=== PATIENT | female | born 1980 | race Caucasian/White ===

== ENCOUNTER 2020-06-19 10:48 | Outpatient (REF) | payer OTHER, SELFPAY ==
[2020-06-19 12:39] LABS: Free T4 (Free Thyroxine) 1.21 ng/dL (0.71-1.85)
== END 2020-06-19 10:49 | disposition home or self-care (01) ==
LOC: HO.LAB 10:48
PROVIDERS: PCP Family Medicine; Visit Provider Internal Medicine
DX: E03.9 Hypothyroidism, unspecified (principal); E55.9 Vitamin D deficiency, unspecified
CPT/HCPCS: 36415; 82306; 84439; 84443

== ENCOUNTER → 2020-07-05 09:05 | Outpatient (BNVA) | payer OTHER, SELFPAY | PROVIDERS: PCP Family Medicine; Visit Provider Internal Medicine ==

== ENCOUNTER 2020-07-19 09:13 | Outpatient (REF) | payer OTHER, SELFPAY | END 2020-07-19 09:14 | disposition home or self-care (01) | LOC: HO.LAB 09:13 | PROVIDERS: Visit Provider Internal Medicine | DX: Z20.822 Contact with and (suspected) exposure to COVID-19 (principal) | CPT/HCPCS: 36415; C9803; U0003; U0005 ==

== ENCOUNTER 2020-08-01 11:47 | Outpatient (REF) | payer OTHER, SELFPAY ==
[2020-08-01 12:13] LABS: COVID-19 Test Negative (Negative); IDNOW Serial# 55D5AD1C
== END 2020-08-01 11:48 | disposition home or self-care (01) ==
LOC: HO.LAB 11:47
PROVIDERS: Visit Provider Internal Medicine
DX: Z20.822 Contact with and (suspected) exposure to COVID-19 (principal)
CPT/HCPCS: 36415; 87635; C9803

== ENCOUNTER 2020-08-14 01:50 | Emergency (ER) | payer OTHER, SELFPAY ==
--- NOTE | ~2020-08-14 | CT_ITS ---
EXAMINATION: CT ABDOMEN AND PELVIS WITH CONTRAST CLINICAL INFORMATION: Left lower quadrant pain. COMPARISON: None. TECHNIQUE: Contiguous axial thin section helical images of the abdomen and pelvis were performed following the administration of 100 mL of intravenous Omnipaque 300. The data set was reformatted in the coronal and sagittal planes and reviewed on an independent workstation. DLP: 668 mGy-cm. FINDINGS: The visualized lung bases are clear. The visualized portions of the heart are unremarkable. The liver is of normal size and attenuation without focal lesions nor intrahepatic biliary ductal dilation. A normal gallbladder is identified. There is no wall thickening or discernible pericholecystic fluid. The spleen, pancreas, adrenal glands are unremarkable. Both kidneys are of normal size and attenuation without hydronephrosis or nephrolithiasis. Following the administration of IV contrast, prompt symmetric nephrograms are displayed. There is no abdominal free fluid. There is neither mesenteric nor retroperitoneal lymphadenopathy. Normal unopacified loops of small and large bowel are identified. A normal appendix is identified. There is no pelvic free fluid. The urinary bladder is unremarkable. There is neither pelvic nor inguinal lymphadenopathy. Bone windows: Neither sclerotic nor lytic bone lesions are identified. CT/CT abdomen pelvis w con IMPRESSION: Acute abdominal or pelvic inflammatory or infectious processes. Automated exposure control (Care Dose) Adjustment of the mA and/or kv according to patient size (this includes techniques or standardized protocols for targeted exams where dose is matched to indication / reason for exam; i.e. extremities or head).
--- NOTE | ~2020-08-14 | US_ITS ---
EXAMINATION: ULTRASOUND PELVIC, COMPLETE CLINICAL INFORMATION: Pain. Elevated white blood cell count. COMPARISON: Same day abdominal and pelvic CT. Pelvic ultrasound from November 2019. TECHNIQUE: Transabdominal and transvaginal imaging was performed. Transvaginal imaging was performed for further evaluation of the endometrium and adnexa. FINDINGS: The uterus is of increased size and overall normal echogenicity measuring 16.4 x 6.3 x 8.5 cm. A regular homogeneous endometrium is identified measuring 1.4 cm. An IUD is in place below within the uterine segment. The proximal portion of the IUD is likely proximal to the cervix, however. There is a fundal fibroid measuring 6.7 x 5.6 x 6.6 cm, increased from prior exam. Both ovaries are of normal size and echogenicity. The right measures 3.5 x 2.3 x 1.8 cm for a volume of 7.8 mL. The left measures 3.5 x 2.5 x 1.8 cm for a volume of 8.3 mL. There is no pelvic free fluid. US/US pelvic and transvaginal IMPRESSION: IUD in place. While it is low within the uterus, the proximal aspect is proximal to the cervix. Interval increase in fundal fibroid.
[2020-08-14 02:02] VITALS: BP 115/56; PULSE 70; RESP 16; TEMP 37.1; O2SAT 99; BMI 30.1
--- NOTE | 2020-08-14 02:35 | ED.ABDPAIN ---
HPI - Abdominal Pain General Chief Complaint: Abdominal Pain Stated Complaint: pelvic pain Time Seen by Provider: 08/14/20 02:23 Source: patient Mode of arrival: ambulatory Limitations: no limitations History of Present Illness HPI narrative: Patient comes emergency room complaining of left lower quadrant pain for 3 days. Patient states that she is aware that she has been diagnosed with polycystic ovarian syndrome. However this time she is very bloated. Patient states that she is currently menstruating. Patient states that she has an IUD in place, concerned that she had her menstrual period twice last month and now she is having it again. Patient complaining also of bilateral lower quadrant abdominal cramping. Patient denies fever, no chills, no nausea or vomiting, no diarrhea, denies vaginal discharge, currently menstruating Related Data Home Medications Medication Instructions Recorded Confirmed ascorbate calcium (vitamin C) 500 500 mg PO DAILY 07/05/20 07/05/20 mg tablet omega-3 fatty acids 1,000 mg 1,000 mg PO DAILY 07/05/20 07/05/20 capsule vitamin E 200 unit capsule 400 unit PO DAILY cap 07/05/20 07/05/20 Previous Rx's Medication Instructions Recorded cholecalciferol (vitamin D3) 1,250 1,250 mcg PO QWEEK 56 Days #8 cap 07/05/20 mcg (50,000 unit) capsule cholecalciferol (vitamin D3) 50 50 mcg PO DAILY 30 Days #30 cap 07/05/20 mcg (2,000 unit) capsule levothyroxine 125 mcg capsule 125 mcg PO DAILY 30 Days #30 cap 07/05/20 acetaminophen [Tylenol 8 Hour] 650 mg PO Q12H #10 tab 08/14/20 ibuprofen 600 mg PO Q8H PRN #10 tab 08/14/20 Allergies Allergy/AdvReac Type Severity Reaction Status Date / Time penicillin V Allergy Unknown Unknown. Verified 07/05/20 10:36 Penicillins [PENICILLINS] Allergy Unknown RASH Verified 07/05/20 10:36 tramadol [TRAMADOL] Allergy Unknown STOMACH Verified 07/05/20 10:36 UPSET Tramadol Allergy Unknown Unknown. Uncoded 07/05/20 10:36 Review of Systems Review of Systems Constitutional : No Weight loss, No Fever, No Chills, No Night Sweats, No Fatigue, No Malaise ENT/Mouth : No Hearing loss, No Ear Pain, No Nasal Congestion, No Sinus Pain, No Hoarseness, No sore throat, No Rhinorrhea, No Swallowing Difficulty Eyes: No Eye Pain, No Swelling, No Redness, No Foreign Body, No Discharge, No Vision Changes Cardiovascular : No Chest Pain, No SOB, No Dyspnea on Exertion, No Orthopnea, No Edema, No Palpitations Respiratory : No Cough, No Sputum, No Wheezing, No Smoke Exposure, No Dyspnea Gastrointestinal : No Nausea, No Vomiting, No Diarrhea, No Constipation, complaining of bilateral lower quadrant cramping, dull pain in the left lower quadrant, No Hematochezia, No Melena Genitourinary : Complaining of irregular bleeding, No Dysuria, No Urinary Frequency, No Hematuria, No Urinary Incontinence, No Urgency, No Flank Pain, No Urinary Flow Changes, No Hesitancy Musculoskeletal : No joint pain, No Myalgias, No Joint Swelling Skin : No Skin Lesions, No rash Neuro : No Weakness, No Numbness, No Paresthesias, No Loss of Consciousness, No Dizziness, No Headache Psych : No Anxiety/Panic, No Depression, No SI/HI/AH/VH, No Social Issues, Heme/Lymph: No Bruising, No Bleeding,No Lymphadenopathy Endocrine : No Polyuria, No Polydipsia, No Temperature Intolerance Physical Exam Vital Signs: Vital Signs: Last Vital Signs Temp 98.7 F 08/14/20 02:02 Pulse 86 08/14/20 06:38 Resp 16 08/14/20 06:38 BP 108/56 L 08/14/20 06:38 Pulse Ox 98 08/14/20 06:38 Body Mass Index 30.1 Appearance: Alert. Oriented X3. No acute distress. Well-appearing Eyes: Pupils equal, round and reactive to light. ENT: Pharynx normal. Neck: Normal inspection. Neck supple. No lymph nodes noted. No crepitus CVS: Normal heart rate and rhythm. Pulses normal. Normal S1 and S2 Respiratory: No respiratory distress. Breath sounds normal. No Wheezing. No rales Abdomen: Soft, mild tenderness to palpation in the left lower quadrant, no rebound, no guarding. No rigidity. No distention. Skin: Skin warm and dry. Normal skin color. Normal skin turgor. Extremities: No lower extremity edema. No lower extremity edema. No Lacerations. No Rash Neuro: Oriented X 3. No motor deficit. No sensory deficit. Moving all extermities. No slurred speech. Course Course Course Narrative: Patient's white blood cell count likely reactive leukocytosis. Patient states that she feels better, pelvic transvaginal ultrasound and pelvic CT scan do not show any acute pathology. Patient states that she has an appointment next week with her OBGYN. MDM - Abdominal Pain Lab Data Result diagrams: 08/14/20 03:09 08/14/20 03:09 Labs: Lab Results 08/14/20 08/14/20 08/14/20 Range/Units 03:09 03:09 04:33 WBC 15.5 H (4.8-10.8) X10*3/uL RBC 4.19 L (4.20-5.50) X10*6/uL Hgb 12.8 (12.0-16.0) g/dl Hct 37.5 (37-47) % MCV 89.5 (80-98) fL MCH 30.5 (27.0-33.0) pg MCHC 34.1 (31.0-35.0) g/dl RDW 12.4 (11.0-16.0) % Plt Count 258 (160-400) X10*3/uL MPV 12.0 (9.4-12.3) fL Immature Gran % (Auto) 0.3 (0.0-0.4) % Neut % (Auto) 84.4 H (45-73) % Lymph % (Auto) 10.5 L (20-40) % Williamson % (Auto) 4.3 (2-11) % Eos % (Auto) 0.3 (0-4) % Baso % (Auto) 0.2 (0-2) % Lymph # (Auto) 1.6 (1.2-4.9) X10*3/uL Williamson # (Auto) 0.7 (0.1-1.2) X10*3/uL Eos # (Auto) 0.0 (0.0-0.4) X10*3/uL Baso # (Auto) 0.0 (0.0-0.2) X10*3/uL Abs Immat Gran (auto) 0.05 H (0.00-0.03) X10*3/uL Absolute Neuts (auto) 13.1 H (2.0-8.3) X10*3/uL Absolute Nucleated RBC 0.000 (0.0-0.012) X10*3/uL Nucleated RBC % (auto) 0.0 (0.0-0.2) /100WBC Sodium 141 (135-145) mmol/L Potassium 4.0 (3.3-5.1) mmol/L Chloride 103 (96-108) mmol/L Carbon Dioxide 30 H (22-29) mmol/L Anion Gap 12 (12-20) BUN 17 H (9-16) mg/dL Creatinine 0.79 (0.5-1.4) mg/dL Estim Creat Clear Calc 100.1 Estimated GFR > 60 Random Glucose 123 H (60-115) mg/dL Calcium 9.4 (8.4-10.2) mg/dL Total Bilirubin 1.1 H (0.0-1.0) mg/dL Direct Bilirubin 0.3 (0.0-0.5) mg/dL AST 15 (5-31) U/L ALT 13 (0-31) U/L Alkaline Phosphatase 60 (39-117) U/L Total Protein 7.2 (6.5-8.0) g/dL Albumin 4.5 (3.5-5.0) g/dL Lipase 18 (8-78) U/L Urine Color STRAW Urine Appearance HAZY Urine pH 6.0 (5.0-8.0) Ur Specific [place] 1.010 (1.005-1.025) Urine Protein 1+ H (NEG-TRACE) MG/DL Urine Glucose (UA) NEG (NEG) MG/DL Urine Ketones NEG (NEG) MG/DL Urine Blood 3+ H (NEG) Urine Nitrite NEG (NEG) Ur Leukocyte Esterase NEG (NEG) Urine RBC TNTC H (0) /HPF Urine WBC 1-4 (0-4) /HPF Ur Squamous Epith Cells 1+ /LPF Urine Bacteria 1+ /LPF Urine Test (NEGATIVE) 08/14/20 Range/Units 04:33 WBC (4.8-10.8) X10*3/uL RBC (4.20-5.50) X10*6/uL Hgb (12.0-16.0) g/dl Hct (37-47) % MCV (80-98) fL MCH (27.0-33.0) pg MCHC (31.0-35.0) g/dl RDW (11.0-16.0) % Plt Count (160-400) X10*3/uL MPV (9.4-12.3) fL Immature Gran % (Auto) (0.0-0.4) % Neut % (Auto) (45-73) % Lymph % (Auto) (20-40) % Williamson % (Auto) (2-11) % Eos % (Auto) (0-4) % Baso % (Auto) (0-2) % Lymph # (Auto) (1.2-4.9) X10*3/uL Williamson # (Auto) (0.1-1.2) X10*3/uL Eos # (Auto) (0.0-0.4) X10*3/uL Baso # (Auto) (0.0-0.2) X10*3/uL Abs Immat Gran (auto) (0.00-0.03) X10*3/uL Absolute Neuts (auto) (2.0-8.3) X10*3/uL Absolute Nucleated RBC (0.0-0.012) X10*3/uL Nucleated RBC % (auto) (0.0-0.2) /100WBC Sodium (135-145) mmol/L Potassium (3.3-5.1) mmol/L Chloride (96-108) mmol/L Carbon Dioxide (22-29) mmol/L Anion Gap (12-20) BUN (9-16) mg/dL Creatinine (0.5-1.4) mg/dL Estim Creat Clear Calc Estimated GFR Random Glucose (60-115) mg/dL Calcium (8.4-10.2) mg/dL Total Bilirubin (0.0-1.0) mg/dL Direct Bilirubin (0.0-0.5) mg/dL AST (5-31) U/L ALT (0-31) U/L Alkaline Phosphatase (39-117) U/L Total Protein (6.5-8.0) g/dL Albumin (3.5-5.0) g/dL Lipase (8-78) U/L Urine Color Urine Appearance Urine pH (5.0-8.0) Ur Specific [place] (1.005-1.025) Urine Protein (NEG-TRACE) MG/DL Urine Glucose (UA) (NEG) MG/DL Urine Ketones (NEG) MG/DL Urine Blood (NEG) Urine Nitrite (NEG) Ur Leukocyte Esterase (NEG) Urine RBC (0) /HPF Urine WBC (0-4) /HPF Ur Squamous Epith Cells /LPF Urine Bacteria /LPF Urine Test NEGATIVE (NEGATIVE) Imaging Data CT scan - abdomen: Radiologist's impression: TECHNIQUE: Contiguous axial thin section helical images of the abdomen and pelvis were performed following the administration of 100 mL of intravenous Omnipaque 300. The data set was reformatted in the coronal and sagittal planes and reviewed on an independent workstation. DLP: 668 mGy-cm. FINDINGS: The visualized lung bases are clear. The visualized portions of the heart are unremarkable. The liver is of normal size and attenuation without focal lesions nor intrahepatic biliary ductal dilation. A normal gallbladder is identified. There is no wall thickening or discernible pericholecystic fluid. The spleen, pancreas, adrenal glands are unremarkable. Both kidneys are of normal size and attenuation without hydronephrosis or nephrolithiasis. Following the administration of IV contrast, prompt symmetric nephrograms are displayed. There is no abdominal free fluid. There is neither mesenteric nor retroperitoneal lymphadenopathy. Normal unopacified loops of small and large bowel are identified. A normal appendix is identified. There is no pelvic free fluid. The urinary bladder is unremarkable. There is neither pelvic nor inguinal lymphadenopathy. Bone windows: Neither sclerotic nor lytic bone lesions are identified. CT/CT abdomen pelvis w con IMPRESSION: Acute abdominal or pelvic inflammatory or infectious processes. Transvaginal ultrasound: Radiologist's impression: The uterus is of increased size and overall normal echogenicity measuring 16.4 x 6.3 x 8.5 cm. A regular homogeneous endometrium is identified measuring 1.4 cm. An IUD is in place below within the uterine segment. The proximal portion of the IUD is likely proximal to the cervix, however. There is a fundal fibroid measuring 6.7 x 5.6 x 6.6 cm, increased from prior exam. Both ovaries are of normal size and echogenicity. The right measures 3.5 x 2.3 x 1.8 cm for a volume of 7.8 mL. The left measures 3.5 x 2.5 x 1.8 cm for a volume of 8.3 mL. There is no pelvic free fluid. US/US pelvic and transvaginal IMPRESSION: IUD in place. While it is low within the uterus, the proximal aspect is proximal to the cervix. Interval increase in fundal fibroid. Discharge Plan Discharge Clinical Impression: Abdominal pain Qualifiers: Abdominal location: left lower quadrant Qualified Code(s): R10.32 - Left lower quadrant pain Patient Disposition: Home, Self-Care Instructions: Abdominal Pain (ED) Additional Instructions: Please follow-up with your primary care physician tomorrow. If you have any worsening or new symptoms, please return to the emergency room or call 911 Prescriptions: New ibuprofen 600 mg tablet 600 mg PO Q8H PRN (Reason: pain) Qty: 10 RF: 0 acetaminophen [Tylenol 8 Hour] 650 mg tablet extended release 650 mg PO Q12H Qty: 10 RF: 0 No Action vitamin E 200 unit capsule 400 unit PO DAILY RF: 0 ascorbate calcium (vitamin C) 500 mg tablet 500 mg PO DAILY RF: 0 omega-3 fatty acids [Fish Oil Concentrate] 1,000 mg capsule 1,000 mg PO DAILY RF: 0 cholecalciferol (vitamin D3) 50 mcg (2,000 unit) capsule 50 mcg PO DAILY 30 Days Qty: 30 RF: 11 cholecalciferol (vitamin D3) 1,250 mcg (50,000 unit) capsule 1,250 mcg PO QWEEK 56 Days Qty: 8 RF: 0 levothyroxine 125 mcg capsule 125 mcg PO DAILY 30 Days Qty: 30 RF: 1 PMFSH Past Medical History Medical History Hypothyroidism Obesity PCOS (polycystic ovarian syndrome) Vitamin D deficiency Surgical History Hx of dilation and curettage Hx of tooth extraction Family History Family History Mother Hypertension Depression Father No problems noted. Paternal Grandfather Diabetes Social History Social History Smoking Status: Former smoker Advance Directives: No Advance Directives Information Provided: No
[2020-08-14 03:13] LABS: Basophils Percent Auto 0.2 % (0-2); Eosinophils Percent Auto 0.3 % (0-4); Hematocrit 37.5 % (37-47); Hemoglobin 12.8 g/dl (12.0-16.0); Imm Gran Abs Auto 0.05 X10*3/uL (0.00-0.03); Imm Gran Pct Auto 0.3 % (0.0-0.4); Lymphocytes Absolute Auto 1.6 X10*3/uL (1.2-4.9); Lymphocytes Percent Auto 10.5 % (20-40); MANUAL DIFF FLAG NO; Mean Corpuscular HGB Conc 34.1 g/dl (31.0-35.0); Mean Corpuscular Hemoglobin 30.5 pg (27.0-33.0); Mean Corpuscular Volume 89.5 fL (80-98); Monocytes Absolute Auto 0.7 X10*3/uL (0.1-1.2); Monocytes Percent Auto 4.3 % (2-11); Neutrophils Absolute Auto 13.1 X10*3/uL (2.0-8.3); Neutrophils Percent Auto 84.4 % (45-73); Platelet Count 258 X10*3/uL (160-400); Red Blood Count 4.19 X10*6/uL (4.20-5.50); Red Cell Distribution Width 12.4 % (11.0-16.0); White Blood Count 15.5 X10*3/uL (4.8-10.8)
[2020-08-14] MEDS: ondansetron HCL 4 MG/2 ML VIAL IVPUSH (03:13)
[2020-08-14] MEDS: Morphine Sulfate 4 MG/ML CARTRIDGE IVPUSH (03:13)
[2020-08-14 03:18] VITALS: BP 98/63; PULSE 76; RESP 16; O2SAT 100
[2020-08-14 03:51] LABS: Alanine Aminotransferase 13 U/L (0-31); Albumin Level 4.5 g/dL (3.5-5.0); Alkaline Phosphatase 60 U/L (39-117); Anion Gap 12 (12-20); Aspartate Amino Transferase 15 U/L (5-31); Bilirubin Direct 0.3 mg/dL (0.0-0.5); Bilirubin Total 1.1 mg/dL (0.0-1.0); Blood Urea Nitrogen 17 mg/dL (9-16); Calcium 9.4 mg/dL (8.4-10.2); Carbon Dioxide 30 mmol/L (22-29); Chloride 103 mmol/L (96-108); Creatinine Clr Calc Pharmacy 100.1; Estimated Glomerular Filt Rate > 60; Glucose Random 123 mg/dL (60-115); Lipase 18 U/L (8-78); Sodium 141 mmol/L (135-145); Total Protein 7.2 g/dL (6.5-8.0)
[2020-08-14] MEDS: iohexoL 350 MG/ML 100 ML INFUS..BTL 85 ML IV (04:11)
--- NOTE | 2020-08-14 04:26 | PC.NURSE ---
patient is ambulatory to the bathroom with a steady gait to obtain a urine sample. Patient reports that the pain is better, 5/10
[2020-08-14 04:33] VITALS: BP 120/66; PULSE 80; RESP 16; O2SAT 100
[2020-08-14 04:51] LABS: Glucose Urine UA NEG (NEG); Leukocyte Esterase Urine NEG (NEG); Nitrite Urine NEG (NEG); Urine Blood 3+ (NEG); Urine Ketones NEG (NEG); Urine Protein 1+ MG/DL (NEG-TRACE)
[2020-08-14 04:53] LABS: Appearance Urine HAZY; Color Urine STRAW
[2020-08-14 04:54] LABS: Bacteria Urine 1+ /LPF; RBC Urine TNTC /HPF (0); Squamous Epithelial Cell Urine 1+ /LPF; UPreg QC Valid YES; Urine Pregnancy NEGATIVE (NEGATIVE)
[2020-08-14 06:38] VITALS: BP 108/56; PULSE 86; RESP 16; O2SAT 98
[2020-08-14 07:12] VITALS: BP 107/71; PULSE 77; RESP 16; TEMP 37; O2SAT 97
== END 2020-08-14 07:35 | disposition home or self-care (01) ==
PROVIDERS: Emergency Provider Emergency Medicine; PCP Family Medicine
DX: R10.32 Left lower quadrant pain (principal)
CPT/HCPCS: 36415; 74177; 76830; 76856; 80048; 80076; 81001; 81025; 83690; 85025; 96374; 96375; 99284; J2270; J2405; Q9967

== ENCOUNTER 2020-08-21 13:12 | Outpatient (REF) | payer OTHER, SELFPAY ==
[2020-08-22 01:21] LABS: CT PCR NOT DETECTED (Not Detect.); NG PCR NOT DETECTED (Not Detect.)
[2020-08-22 08:51] LABS: BV Int Neg Control Negative (Negative); BV Int Pos Control Positive (Positive)
== END 2020-08-21 13:13 | disposition home or self-care (01) ==
LOC: HO.LAB 13:12
PROVIDERS: PCP Family Medicine; Visit Provider Advanced Practice Midwife
DX: Z11.3 Encounter for screening for infections with a predominantly sexual mode of transmission (principal); R10.2 Pelvic and perineal pain; N92.1 Excessive and frequent menstruation with irregular cycle
CPT/HCPCS: 81025; 87480; 87491; 87510; 87591; 87660; 99212

== ENCOUNTER 2020-08-31 13:15 | Emergency (ER) | payer OTHER, SELFPAY ==
--- NOTE | ~2020-08-31 | US_ITS ---
EXAMINATION: US TRANSVAGINAL US PELVIS COMPLETE CLINICAL INFORMATION: 40-year-old female with vaginal bleeding and left-sided pelvic pain. Evaluate for cyst. COMPARISON: CT imaging of the abdomen and pelvis from 08/14/2020. Pelvic ultrasound from 09/09/2019 and 12/09/2019. TECHNIQUE: Sonographic imaging of the pelvis was performed using a transabdominal transducer. Also, transvaginal imaging of the pelvis was performed. FINDINGS: US PELVIS, COMPLETE Transabdominal imaging of the pelvis shows normal appearance of the urinary bladder. Uterus is anteverted, anteflexed. There is heterogeneous echotexture in the anterior fundal region at site of known intramural leiomyoma. The endometrium measures up to 1.4 cm AP. No endometrial fluid. The right ovary is not visualized. The left ovary has an anechoic, simple cyst measuring up to 3.4 cm. US PELVIS, TRANSVAGINAL The endometrium, which has normal echotexture, measures up to 1.4 cm AP. The contraceptive device is well centered within the endometrium. The tip of the intrauterine contraceptive device projects projects 2.3 cm below the upper margin of the fundal endometrium, and it is not significantly changed in position compared to 08/14/2020. It does not protrude into the cervix. The known leiomyoma in the anterior uterine fundus is heterogeneous. It is difficult to precisely measure. The leiomyoma appears to measure up to at least 6 cm in maximum dimension, unchanged compared to 08/14/2020, and increased in size compared to 09/09/2019.. The right ovary is not visualized. The left ovary is 4.4 x 3.1 x 3.8 cm. It has a 3.4 x 2.7 x 2.8 cm simple cyst. Simple ovarian cysts in premenopausal patients are almost certainly benign. No follow-up imaging is recommended for a simple cyst. Color Doppler images show presence of arterial flow within the ovary. No pelvic free fluid. US/US pelvic complete IMPRESSION: * No acute abnormalities in the pelvis compared to 08/14/2020 * Simple cyst of the left ovary measures up to 3.4 cm. No evidence of ovarian torsion or pelvic free fluid. * The leiomyoma of the anterior uterine fundus is stable compared to 08/14/2020, but increased in size compared to 09/09/2019.
[2020-08-31 13:17] VITALS: BP 122/69; PULSE 89; RESP 18; TEMP 36.7; O2SAT 100; BMI 29.9
[2020-08-31 14:46] LABS: MANUAL DIFF FLAG NO
[2020-08-31 14:49] LABS: Basophils Percent Auto 0.3 % (0-2); Eosinophils Absolute Auto 0.1 X10*3/uL (0.0-0.4); Eosinophils Percent Auto 1.2 % (0-4); Hematocrit 37.4 % (37-47); Hemoglobin 12.8 g/dl (12.0-16.0); Imm Gran Abs Auto 0.03 X10*3/uL (0.00-0.03); Imm Gran Pct Auto 0.3 % (0.0-0.4); Lymphocytes Absolute Auto 2.4 X10*3/uL (1.2-4.9); Lymphocytes Percent Auto 27.4 % (20-40); Mean Corpuscular HGB Conc 34.2 g/dl (31.0-35.0); Mean Corpuscular Hemoglobin 30.5 pg (27.0-33.0); Mean Corpuscular Volume 89.3 fL (80-98); Mean Platelet Volume 11.7 fL (9.4-12.3); Monocytes Absolute Auto 0.6 X10*3/uL (0.1-1.2); Monocytes Percent Auto 6.5 % (2-11); Neutrophils Absolute Auto 5.7 X10*3/uL (2.0-8.3); Neutrophils Percent Auto 64.3 % (45-73); Platelet Count 275 X10*3/uL (160-400); Red Blood Count 4.19 X10*6/uL (4.20-5.50); Red Cell Distribution Width 12.5 % (11.0-16.0); White Blood Count 8.9 X10*3/uL (4.8-10.8)
[2020-08-31 15:14] LABS: Anion Gap 12 (12-20); Blood Urea Nitrogen 14 mg/dL (9-16); Calcium 8.9 mg/dL (8.4-10.2); Carbon Dioxide 26 mmol/L (22-29); Chloride 105 mmol/L (96-108); Creatinine Clr Calc Pharmacy 108.1; Estimated Glomerular Filt Rate > 60; Glucose Random 87 mg/dL (60-115); Potassium 4.6 mmol/L (3.3-5.1); Sodium 138 mmol/L (135-145)
--- NOTE | 2020-08-31 17:16 | ED_ITS ---
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 Of note the patient has had pelvic pain intermittently for the last 2-3 months. She has an IUD which has been in place since 2018. She has irregular bleeding since the placement of this. She was seen in our emergency department August 14 for pain and bleeding. She had an ultrasound which showed the IUD in place, in addition a fibroid. 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 She followed up with [employer]ING MACHINE OPERATOR August 21 and this was thought to be breakthrough bleeding associated with IUD. She had an STD panel which was all negative. Patient tells me she has had continued bleeding although does not feel like it is worse. She is worried that has continued this long. She did call [facility] today and was referred to the emergency department for evaluation due to her pain. The patient tells me that she has intermittent left-sided pelvic pain which comes and goes which does improve with Motrin at home. She denies any vaginal discharge, lesions, rashes. No nausea, vomiting, diarrhea, constipation or urinary symptoms. She is sexually active with 1 male partner and is not concerned about STD exposure. She tells me she has vag bleeding and uses 2-4 pads per day. Related Data Home Medications Medication Instructions Recorded Confirmed ascorbate calcium (vitamin C) 500 500 mg PO DAILY 07/05/20 07/05/20 mg tablet omega-3 fatty acids 1,000 mg 1,000 mg PO DAILY 07/05/20 07/05/20 capsule vitamin E 200 unit capsule 400 unit PO DAILY cap 07/05/20 07/05/20 Previous Rx's Medication Instructions Recorded cholecalciferol (vitamin D3) 1,250 1,250 mcg PO QWEEK 56 Days #8 cap 07/05/20 mcg (50,000 unit) capsule cholecalciferol (vitamin D3) 50 50 mcg PO DAILY 30 Days #30 cap 07/05/20 mcg (2,000 unit) capsule levothyroxine 125 mcg capsule 125 mcg PO DAILY 30 Days #30 cap 07/05/20 acetaminophen [Tylenol 8 Hour] 650 mg PO Q12H #10 tab 08/14/20 ibuprofen 600 mg PO Q8H PRN #10 tab 08/14/20 ibuprofen 600 mg PO Q8H PRN #20 tab 08/31/20 Allergies Allergy/AdvReac Type Severity Reaction Status Date / Time Penicillins [PENICILLINS] Allergy Unknown RASH Verified 08/21/20 14:19 tramadol [TRAMADOL] Allergy Unknown STOMACH Verified 08/21/20 14:19 UPSET Review of Systems Review of Systems: Yes all other systems are reviewed and are negative Constitutional: Constitutional: Reports no additional constitutional complaints, Denies body ache(s), Denies chills, Denies fever(s), Denies headache(s) and Denies weakness Eyes: Eyes: Reports no additional eye complaints and Denies change in vision ENT: Reports system reviewed and no additional complaints, except as documented, Denies dizziness, Denies headache(s), Denies nasal congestion, Denies nasal discharge and Denies neck pain Cardiovascular: Cardiovascular: Reports no additional cardiovascular complaints, Denies chest pain, Denies leg edema and Denies dyspnea Respiratory: Respiratory: Reports no additional respiratory complaints, Denies cough and Denies dyspnea Gastrointestinal: Gastrointestinal: Reports no additional gastrointestinal complaints, Denies abdominal pain, Denies diarrhea, Denies nausea and Denies vomiting Genitourinary: Genitourinary: Reports no additional female genitourinary complaints, Reports abnormal vaginal bleeding, Reports pelvic pain and Denies urinary incontinence Musculoskeletal: Musculoskeletal: Reports no additional musculoskeletal complaints, Denies back pain, Denies arthralgias, Denies joint swelling, Denies neck pain, Denies numbness and Denies tingling Integumentary/Breasts: Skin/Breast: Reports system reviewed and no additional complaints, except as docu and Denies rash Neurologic: Reports system reviewed and no additional complaints, except as documented, Denies Abnormal speech present, Denies dizziness, Denies headache(s), Denies numbness, Denies tingling and Denies weakness PMFSH Past Medical History Attestation statement: The following information was validated with the patient. Source: old records reviewed and nursing notes reviewed Medical History Hypothyroidism Obesity PCOS (polycystic ovarian syndrome) Uterine fibroid Vitamin D deficiency Surgical History Hx of dilation and curettage Hx of tooth extraction Family History Family History Mother Hypertension Depression Father No problems noted. Paternal Grandfather Diabetes Social History Social History Alcohol intake: never Smoking Status: Never smoker Use of substances other than those prescribed or required for medical reasons: No Advance Directives: No Advance Directives Information Provided: Yes Patient : No Physical Exam Vital Signs: Vital Signs: Last Vital Signs Temp 98.0 F 08/31/20 13:17 Pulse 78 08/31/20 19:53 Resp 16 08/31/20 19:53 BP 127/88 08/31/20 19:53 Pulse Ox 98 08/31/20 19:53 Body Mass Index 29.9 Const: General: cooperative, healthy appearing, comfortable and no acute distress Orientation/consciousness: patient oriented x3 Limitations: no limitations HENMT: Head: Yes normal to inspection Ears: hearing grossly normal bilaterally General nose exam: Normal external nose present Face and sinus: Yes normal facial exam Mouth: Normal oral and palatal mucosa present Throat: Yes posterior oropharynx normal Eyes: General: appearance normal, both eyes and all related structures Pupils: Equal, round and reactive pupils present Neck: Neck: Yes normal visual inspection Chest: Chest palpation & inspection: normal inspection of the chest Resp: Effort & Inspection: normal respiratory effort Auscultation: clear to auscultation bilaterally Cardio: Rate: regular rate Rhythm: regular rhythm Peripheral pulses: Peripheral pulses 2+ throughout GI: Inspection: Yes normal to inspection Palpation (GI): Soft to palpation and nontender Auscultation: normal bowel sounds : External Female Exam: normal external appearance Speculum Exam - Vagina: vaginal bleeding (small BRB, no clots ) Speculum Exam - Cervix: normal appearance of the cervix Bimanual exam- vagina & uterus: normal bimanual exam Bimanual Exam- Adnexa, other: normal adnexae OB/external & speculum: vaginal bleeding (small BRB, no clots ) Back/Spine/Pelvis: Thoracic/Lumbar Spine: thoracic and lumbar spine normal to inspection Skin: General skin exam: no rashes or lesions noted Neuro: General: patient oriented x3, no focal motor deficits and normal sensation to monofilament Cranial nerves: Yes Equal, round and reactive pupils present Cognition (Neuro): normal cognition Speech: No Abnormal speech present Gait exam (Neuro): Normal gait present Motor exam (neuro): 5/5 motor strength present throughout Extrem: General: Yes normal to inspection Course Course Course Narrative: 40-year-old female here with chronic left-sided pelvic pain and vaginal bleeding for the last 3 months. Seen in ER and at [facility] and has had multiple ultrasounds and evaluations which have been unremarkable. Patient is here due to persistent symptoms which she does not describe as worsening. Will check labs, UA, pelvic ultrasound, pelvic exam. Offered STI testing but declined. 2044-hemoglobin stable. UA and urine negative. Pelvic exam showed a small amount of bleeding but no clots. Patient changed her pad once in the 6 hours that she was here. Pelvic ultrasound shows a known The leiomyoma of the anterior uterine fundus is stable compared to 08/14/2020, but increased in size compared to 09/09/2019. Simple cyst of the left ovary measures up to 3.4 cm. No evidence of ovarian torsion or pelvic free fluid. Discussed with patient. Her pain is much improved after receiving IM Toradol. Recommend she follow up outpatient with Gynecology. Reviewed worrisome signs and symptoms of when to return to the emergency department. Comfortable discharge home. Medical Decision Making Lab Data Result diagrams: 08/31/20 14:37 08/31/20 14:37 Labs: Lab Results 08/31/20 08/31/20 08/31/20 Range/Units 14:37 14:37 17:51 WBC 8.9 (4.8-10.8) X10*3/uL RBC 4.19 L (4.20-5.50) X10*6/uL Hgb 12.8 (12.0-16.0) g/dl Hct 37.4 (37-47) % MCV 89.3 (80-98) fL MCH 30.5 (27.0-33.0) pg MCHC 34.2 (31.0-35.0) g/dl RDW 12.5 (11.0-16.0) % Plt Count 275 (160-400) X10*3/uL MPV 11.7 (9.4-12.3) fL Immature Gran % (Auto) 0.3 (0.0-0.4) % Neut % (Auto) 64.3 (45-73) % Lymph % (Auto) 27.4 (20-40) % Cross % (Auto) 6.5 (2-11) % Eos % (Auto) 1.2 (0-4) % Baso % (Auto) 0.3 (0-2) % Lymph # (Auto) 2.4 (1.2-4.9) X10*3/uL Cross # (Auto) 0.6 (0.1-1.2) X10*3/uL Eos # (Auto) 0.1 (0.0-0.4) X10*3/uL Baso # (Auto) 0.0 (0.0-0.2) X10*3/uL Abs Immat Gran (auto) 0.03 (0.00-0.03) X10*3/uL Absolute Neuts (auto) 5.7 (2.0-8.3) X10*3/uL Absolute Nucleated RBC 0.000 (0.0-0.012) X10*3/uL Nucleated RBC % (auto) 0.0 (0.0-0.2) /100WBC Sodium 138 (135-145) mmol/L Potassium 4.6 (3.3-5.1) mmol/L Chloride 105 (96-108) mmol/L Carbon Dioxide 26 (22-29) mmol/L Anion Gap 12 (12-20) BUN 14 (9-16) mg/dL Creatinine 0.73 (0.5-1.4) mg/dL Estim Creat Clear Calc 108.1 Estimated GFR > 60 Random Glucose 87 (60-115) mg/dL Calcium 8.9 (8.4-10.2) mg/dL Urine Color YELLOW Urine Appearance CLEAR Urine pH 6.0 (5.0-8.0) Ur Specific Welling 1.010 (1.005-1.025) Urine Protein NEG (NEG-TRACE) MG/DL Urine Glucose (UA) NEG (NEG) MG/DL Urine Ketones 15 (NEG) MG/DL Urine Blood 3+ H (NEG) Urine Nitrite NEG (NEG) Ur Leukocyte Esterase NEG (NEG) Urine RBC TNTC H (0) /HPF Urine WBC 0-2 (0-4) /HPF Ur Squamous Epith Cells 1+ /LPF Urine Bacteria NONE /LPF Urine Test (NEGATIVE) 08/31/20 Range/Units 17:51 WBC (4.8-10.8) X10*3/uL RBC (4.20-5.50) X10*6/uL Hgb (12.0-16.0) g/dl Hct (37-47) % MCV (80-98) fL MCH (27.0-33.0) pg MCHC (31.0-35.0) g/dl RDW (11.0-16.0) % Plt Count (160-400) X10*3/uL MPV (9.4-12.3) fL Immature Gran % (Auto) (0.0-0.4) % Neut % (Auto) (45-73) % Lymph % (Auto) (20-40) % Cross % (Auto) (2-11) % Eos % (Auto) (0-4) % Baso % (Auto) (0-2) % Lymph # (Auto) (1.2-4.9) X10*3/uL Cross # (Auto) (0.1-1.2) X10*3/uL Eos # (Auto) (0.0-0.4) X10*3/uL Baso # (Auto) (0.0-0.2) X10*3/uL Abs Immat Gran (auto) (0.00-0.03) X10*3/uL Absolute Neuts (auto) (2.0-8.3) X10*3/uL Absolute Nucleated RBC (0.0-0.012) X10*3/uL Nucleated RBC % (auto) (0.0-0.2) /100WBC Sodium (135-145) mmol/L Potassium (3.3-5.1) mmol/L Chloride (96-108) mmol/L Carbon Dioxide (22-29) mmol/L Anion Gap (12-20) BUN (9-16) mg/dL Creatinine (0.5-1.4) mg/dL Estim Creat Clear Calc Estimated GFR Random Glucose (60-115) mg/dL Calcium (8.4-10.2) mg/dL Urine Color Urine Appearance Urine pH (5.0-8.0) Ur Specific Welling (1.005-1.025) Urine Protein (NEG-TRACE) MG/DL Urine Glucose (UA) (NEG) MG/DL Urine Ketones (NEG) MG/DL Urine Blood (NEG) Urine Nitrite (NEG) Ur Leukocyte Esterase (NEG) Urine RBC (0) /HPF Urine WBC (0-4) /HPF Ur Squamous Epith Cells /LPF Urine Bacteria /LPF Urine Test NEGATIVE (NEGATIVE) Imaging Data pelvic US: Attestation: I personally reviewed and interpreted this imaging study as follows: Radiologist's impression: * No acute abnormalities in the pelvis compared to 08/14/2020 * Simple cyst of the left ovary measures up to 3.4 cm. No evidence of ovarian torsion or pelvic free fluid. * The leiomyoma of the anterior uterine fundus is stable compared to 08/14/2020, but increased in size compared to 09/09/2019. Discharge Plan Discharge Clinical Impression: Vaginal bleeding Ovarian cyst Qualifiers: Laterality: left Qualified Code(s): N83.202 - Unspecified ovarian cyst, left side Patient Disposition: Home, Self-Care Instructions: Ovarian Cyst (ED) Additional Instructions: Call Gynecology tomorrow for follow-up appointment Return for using more than 1 pad in 1 hour Prescriptions: New ibuprofen 600 mg tablet 600 mg PO Q8H PRN (Reason: pain) Qty: 20 RF: 0 No Action ibuprofen 600 mg tablet 600 mg PO Q8H PRN (Reason: pain) Qty: 10 RF: 0 acetaminophen [Tylenol 8 Hour] 650 mg tablet extended release 650 mg PO Q12H Qty: 10 RF: 0 vitamin E 200 unit capsule 400 unit PO DAILY RF: 0 ascorbate calcium (vitamin C) 500 mg tablet 500 mg PO DAILY RF: 0 omega-3 fatty acids [Fish Oil Concentrate] 1,000 mg capsule 1,000 mg PO DAILY RF: 0 cholecalciferol (vitamin D3) 50 mcg (2,000 unit) capsule 50 mcg PO DAILY 30 Days Qty: 30 RF: 11 cholecalciferol (vitamin D3) 1,250 mcg (50,000 unit) capsule 1,250 mcg PO QWEEK 56 Days Qty: 8 RF: 0 levothyroxine 125 mcg capsule 125 mcg PO DAILY 30 Days Qty: 30 RF: 1 Referrals: Robert Dawn MD [Physician] - 2 days Interventions: ED Discharge Assessment Last Done: 08/31/20 20:43 Discharge Date/Time: 08/31/20 20:43 Print Language: Afghan
[2020-08-31 18:05] LABS: Glucose Urine UA NEG (NEG); Leukocyte Esterase Urine NEG (NEG); Nitrite Urine NEG (NEG); Urine Blood 3+ (NEG); Urine Ketones 15 MG/DL (NEG); Urine Protein NEG (NEG-TRACE)
[2020-08-31 18:09] LABS: Appearance Urine CLEAR; Color Urine YELLOW
[2020-08-31 18:16] VITALS: BP 112/79; PULSE 67; RESP 15; O2SAT 97
[2020-08-31 18:25] LABS: RBC Urine TNTC /HPF (0); Squamous Epithelial Cell Urine 1+ /LPF; WBC Urine 0-2 /HPF (0-4)
[2020-08-31 18:26] LABS: UPreg QC Valid YES; Urine Pregnancy NEGATIVE (NEGATIVE)
[2020-08-31] MEDS: Ketorolac Tromethamine 60 MG/2 ML VIAL IM (18:52)
[2020-08-31 19:53] VITALS: BP 127/88; PULSE 78; RESP 16; O2SAT 98
== END 2020-08-31 20:43 | disposition home or self-care (01) ==
PROVIDERS: Nurse Practitioner Family; Emergency Provider Internal Medicine
DX: N83.202 Unspecified ovarian cyst, left side (principal); N93.9 Abnormal uterine and vaginal bleeding, unspecified; Z79.899 Other long term (current) drug therapy
CPT/HCPCS: 36415; 76830; 76856; 80048; 81001; 81025; 85025; 96372; 99285; J1885

== ENCOUNTER → 2020-09-05 10:40 | Outpatient (BNVA) | payer OTHER, SELFPAY | PROVIDERS: Visit Provider Advanced Practice Midwife | DX: Z30.432 Encounter for removal of intrauterine contraceptive device (principal); N92.1 Excessive and frequent menstruation with irregular cycle; R10.2 Pelvic and perineal pain; Z97.5 Presence of (intrauterine) contraceptive device | CPT/HCPCS: 58301; 81025 ==

== ENCOUNTER → 2020-10-09 09:29 | Outpatient (BNVA) | payer OTHER, SELFPAY | PROVIDERS: PCP Family Medicine; Visit Provider Internal Medicine ==

== ENCOUNTER 2020-10-13 06:23 | Outpatient (REF) | payer MEDICAID, SELFPAY ==
[2020-10-13 08:04] LABS: Estimated Average Glucose 94 mg/dL; Hemoglobin A1c % 4.9 %
[2020-10-13 08:16] LABS: Alanine Aminotransferase 12 U/L (0-31); Albumin Level 4.3 g/dL (3.5-5.0); Alkaline Phosphatase 66 U/L (39-117); Anion Gap 13 (12-20); Aspartate Amino Transferase 15 U/L (5-31); Bilirubin Total 0.5 mg/dL (0.0-1.0); Blood Urea Nitrogen 19 mg/dL (9-16); Carbon Dioxide 25 mmol/L (22-29); Chloride 104 mmol/L (96-108); Cholesterol 203 mg/dL; Estimated Glomerular Filt Rate > 60; Glucose Random 94 mg/dL (60-115); HDL Cholesterol 50 mg/dL; LDL Cholesterol Calculated 141 mg/dl; Potassium 4.3 mmol/L (3.3-5.1); Sodium 138 mmol/L (135-145); Total Protein 6.8 g/dL (6.5-8.0); Triglycerides 60 mg/dL
[2020-10-13 08:27] LABS: Vitamin D 25-OH Total 34.9 ng/mL (>30)
[2020-10-14 08:52] LABS: LDL Cholesterol Direct 137 mg/dL (<100)
== END 2020-10-13 06:24 | disposition home or self-care (01) ==
LOC: HO.LAB 06:23
PROVIDERS: PCP Family Medicine; Visit Provider Internal Medicine
DX: E66.9 Obesity, unspecified (principal); E55.9 Vitamin D deficiency, unspecified
CPT/HCPCS: 36415; 80053; 80061; 82306; 83036; 83721

== ENCOUNTER 2020-12-13 15:44 | Outpatient (REF) | payer MEDICAID, SELFPAY ==
--- NOTE | ~2020-12-13 | MM_ITS ---
EXAMINATION: MM SCREENING DIGITAL BREAST TOMOSYNTHESIS, BILATERAL CLINICAL INFORMATION: Screening. Asymptomatic. Age 40. No prior breast imaging. No known family history breast cancer. The lifetime risk of breast cancer based on the Tyrer-Cuzick Model is 14%. COMPARISON: None (current study represents initial baseline exam). TECHNIQUE: Digital breast tomosynthesis is performed in both the craniocaudal and mediolateral oblique views along with computer-aided detection (CAD). Synthesized 2D images are generated from the tomosynthesis. FINDINGS: There are scattered areas of fibroglandular density (ACR BI-RADS breast composition Category b). Breast tissue composition borders on heterogeneously dense. There are no significant masses, abnormal calcifications, or other abnormalities. The axilla and skin contours are unremarkable. MM/MM tomosynthesis screening BI IMPRESSION: No mammographic evidence of malignancy. ASSESSMENT: BI-RADS 1: Negative RECOMMENDATION: Routine annual mammography screening. This patient's information was entered into a reminder system with a target due date for their next mammogram.
== END 2020-12-13 15:45 | disposition home or self-care (01) ==
LOC: HO.MAMMO 15:44
PROVIDERS: Visit Provider Advanced Practice Midwife
DX: Z12.31 Encounter for screening mammogram for malignant neoplasm of breast (principal)
CPT/HCPCS: 77063; 77067

== ENCOUNTER → 2021-01-08 10:45 | Outpatient (BNVA) | payer MEDICAID, SELFPAY | PROVIDERS: PCP Family Medicine; Visit Provider Internal Medicine ==

== ENCOUNTER 2021-05-16 11:56 | Outpatient (REF) | payer MEDICAID, SELFPAY ==
[2021-05-16 12:18] LABS: COVID-19 Test Positive (Negative)
== END 2021-05-16 11:57 | disposition home or self-care (01) ==
LOC: HO.LAB 11:56
PROVIDERS: Visit Provider Internal Medicine
DX: Z20.822 Contact with and (suspected) exposure to COVID-19 (principal)
CPT/HCPCS: 87635; C9803

== ENCOUNTER 2021-06-01 16:20 | Outpatient (REF) | payer MEDICAID, SELFPAY ==
--- NOTE | ~2021-06-01 | XR_ITS ---
EXAMINATION: XR KNEE, RIGHT CLINICAL INFORMATION: Right knee pain COMPARISON: None TECHNIQUE: Four views of the right knee. FINDINGS: No fracture or dislocation or destructive process. No suprapatellar effusion. Hoffa's fat pad appears normal. There is normal bony mineralization. No focal joint narrowing or erosive change or chondrocalcinosis. Axial view patella shows no lateralization or tilting. XR/XR knee RT 4V IMPRESSION: Normal right knee.
== END 2021-06-01 16:21 | disposition home or self-care (01) ==
LOC: HO.XRAY 16:20
PROVIDERS: Absent Provider Family Medicine; PCP Family Medicine; Visit Provider Nurse Practitioner Primary Care
DX: M25.561 Pain in right knee (principal)
CPT/HCPCS: 73564

== ENCOUNTER 2021-07-17 14:00 | Outpatient (REF) | payer MEDICAID, SELFPAY ==
--- NOTE | ~2021-07-17 | US_ITS ---
EXAMINATION: ULTRASOUND EXTREMITY NONVASCULAR CLINICAL INFORMATION: Right posterior knee pain COMPARISON: X-ray of the right knee May 2021 TECHNIQUE: Grayscale and color imaging of the soft tissues posterior to the knee FINDINGS: No Mccray's cyst is seen. The popliteal vein is patent. US/US extremity nonvascular IMPRESSION: Unremarkable exam.
== END 2021-07-17 14:01 | disposition home or self-care (01) ==
LOC: HO.US 14:00
PROVIDERS: PCP Family Medicine; Visit Provider Nurse Practitioner Primary Care
DX: M25.561 Pain in right knee (principal)
CPT/HCPCS: 76882

== ENCOUNTER 2021-09-26 14:34 | Outpatient (REF) | payer MEDICAID, SELFPAY ==
[2021-09-27 01:54] LABS: CT PCR NOT DETECTED (Not Detect.); NG PCR NOT DETECTED (Not Detect.)
[2021-09-27 11:04] LABS: BV Int Neg Control Negative (Negative); BV Int Pos Control Positive (Positive)
== END 2021-09-26 14:35 | disposition home or self-care (01) ==
LOC: HO.LAB 14:34
PROVIDERS: Visit Provider Advanced Practice Midwife
DX: Z01.411 Encounter for gynecological examination (general) (routine) with abnormal findings (principal); R10.2 Pelvic and perineal pain; E28.2 Polycystic ovarian syndrome; D25.9 Leiomyoma of uterus, unspecified; N92.6 Irregular menstruation, unspecified; Z20.2 Contact with and (suspected) exposure to infections with a predominantly sexual mode of transmission
CPT/HCPCS: 81025; 87480; 87491; 87510; 87591; 87660

== ENCOUNTER 2022-12-03 09:02 | Outpatient (REF) | payer MEDICAID, SELFPAY ==
[2022-12-03 11:27] LABS: MANUAL DIFF FLAG NO
[2022-12-03 11:42] LABS: Basophils Percent Auto 0.5 % (0-2); Eosinophils Absolute Auto 0.1 X10*3/uL (0.0-0.4); Eosinophils Percent Auto 1.9 % (0-4); Hemoglobin 12.5 g/dl (12.0-16.0); Imm Gran Abs Auto 0.01 X10*3/uL (0.00-0.03); Imm Gran Pct Auto 0.2 % (0.0-0.4); Lymphocytes Absolute Auto 2.1 X10*3/uL (1.2-4.9); Lymphocytes Percent Auto 33.3 % (20-40); Mean Corpuscular HGB Conc 33.8 g/dl (31.0-35.0); Mean Corpuscular Hemoglobin 30.5 pg (27.0-33.0); Mean Corpuscular Volume 90.2 fL (80.0-98.0); Mean Platelet Volume 12.2 fL (9.4-12.3); Monocytes Absolute Auto 0.5 X10*3/uL (0.1-1.2); Monocytes Percent Auto 7.7 % (2-11); Neutrophils Absolute Auto 3.5 x10*3/uL (2.0-8.3); Neutrophils Percent Auto 56.4 % (45-73); Platelet Count 294 X10*3/uL (160-400); Red Cell Distribution Width 12.5 % (11.0-16.0); White Blood Count 6.3 X10*3/uL (4.8-10.8)
[2022-12-03 12:09] LABS: Estimated Average Glucose 100 mg/dL; Hemoglobin A1C 107.2555 umol/L; Hemoglobin A1c % 5.1 %
[2022-12-03 13:03] LABS: Alanine Aminotransferase 13 U/L (0-31); Albumin Level 4.1 g/dL (3.5-5.0); Alkaline Phosphatase 60 U/L (39-117); Anion Gap 9 (12-20); Aspartate Amino Transferase 17 U/L (5-31); Bilirubin Direct 0.2 mg/dL (0.0-0.5); Bilirubin Total 0.6 mg/dL (0.0-1.0); Blood Urea Nitrogen 16 mg/dL (9-16); Carbon Dioxide 29 mmol/L (22-29); Chloride 105 mmol/L (96-108); Cholesterol 187 mg/dL; Estimated Glomerular Filt Rate > 60; Glucose Random 96 mg/dL (60-115); HDL Cholesterol 51 mg/dL; LDL Cholesterol Calculated 121 mg/dl; Potassium 4.1 mmol/L (3.3-5.1); Sodium 139 mmol/L (135-145); Total Protein 6.8 g/dL (6.5-8.0); Triglycerides 76 mg/dL
[2022-12-03 13:04] LABS: TSH reflex Free T4 0.83 uIU/mL (0.32-4.0); Vitamin D 25-OH Total 30.7 ng/mL (>30)
[2022-12-04 04:37] LABS: HIV AB/AG Nonreactive (Nonreactive); HIV Num 1 0.05 S/CO (0.00-0.99)
== END 2022-12-03 09:03 | disposition home or self-care (01) ==
LOC: HO.HHCL 09:02
PROVIDERS: Visit Provider Family Medicine
DX: Z11.4 Encounter for screening for human immunodeficiency virus [HIV] (principal); E03.9 Hypothyroidism, unspecified; E55.9 Vitamin D deficiency, unspecified; E78.5 Hyperlipidemia, unspecified; E28.2 Polycystic ovarian syndrome
CPT/HCPCS: 36415; 80048; 80061; 80076; 82306; 83036; 84443; 85025; 87389

== ENCOUNTER 2022-12-27 12:26 | Emergency (ER) | payer MEDICAID, SELFPAY ==
--- NOTE | ~2022-12-27 | US_ITS ---
EXAMINATION: US PELVIS COMPLETE US PELVIS ENDOVAGINAL CLINICAL INFORMATION: Pelvic pain history of PCOS COMPARISON: Ultrasound pelvis from 08/31/2020 TECHNIQUE: Transabdominal and transvaginal images of the pelvis were obtained. FINDINGS: UTERUS: Anteverted and anteflexed. Enlarged measuring 14.5 x 3.2 x 3.5 cm (cervix to fundus x AP x transverse). Uterine fibroid noted measuring up to 5.8 cm previously measuring up to 7.1 cm. Endometrium measures 1.9 cm in thickness though this may be accentuated secondary to possible underlying fibroid. Nabothian cysts noted. RIGHT OVARY: Normal size and echogenicity measuring 1.8 x 1.6 x 1.7 cm, volume 2.6 mL. Vascular flow noted in the right ovary. LEFT OVARY: Left ovary not well visualized. No left adnexal masses or collections noted. FREE FLUID: No pelvic free fluid. US/US pelvic ovarian doppler IMPRESSION: 1. Leiomyomatous uterus with fibroid measuring up to 5.8 cm previously measuring up to 7.1 cm. 2. Endometrium measures up to 1.9 cm in thickness though this may be accentuated secondary to possible underlying fibroid. 3. Right ovarian vascular flow identified. 4. Left ovary not well visualized, limiting evaluation. No left adnexal masses or collections noted.
--- NOTE | ~2022-12-27 | US_ITS ---
EXAMINATION: US PELVIS COMPLETE US PELVIS ENDOVAGINAL CLINICAL INFORMATION: Pelvic pain history of PCOS COMPARISON: Ultrasound pelvis from 08/31/2020 TECHNIQUE: Transabdominal and transvaginal images of the pelvis were obtained. FINDINGS: UTERUS: Anteverted and anteflexed. Enlarged measuring 14.5 x 3.2 x 3.5 cm (cervix to fundus x AP x transverse). Uterine fibroid noted measuring up to 5.8 cm previously measuring up to 7.1 cm. Endometrium measures 1.9 cm in thickness though this may be accentuated secondary to possible underlying fibroid. Nabothian cysts noted. RIGHT OVARY: Normal size and echogenicity measuring 1.8 x 1.6 x 1.7 cm, volume 2.6 mL. Vascular flow noted in the right ovary. LEFT OVARY: Left ovary not well visualized. No left adnexal masses or collections noted. FREE FLUID: No pelvic free fluid. US/US pelvic and transvaginal IMPRESSION: 1. Leiomyomatous uterus with fibroid measuring up to 5.8 cm previously measuring up to 7.1 cm. 2. Endometrium measures up to 1.9 cm in thickness though this may be accentuated secondary to possible underlying fibroid. 3. Right ovarian vascular flow identified. 4. Left ovary not well visualized, limiting evaluation. No left adnexal masses or collections noted.
[2022-12-27 12:31] VITALS: BP 127/76; PULSE 80; RESP 16; TEMP 36.7; O2SAT 99; BMI 30.1
--- NOTE | 2022-12-27 12:31 | ED.GENADULT ---
HPI - General Adult General Chief complaint: General Medical Stated complaint: pcos ? in pain Time Seen by Provider: 12/27/22 13:15 Source: patient, old records reviewed and sheep sticker Mode of arrival: ambulatory Limitations: no limitations History of Present Illness HPI narrative: 42 yo female with PMH of PCOS, hypothyroidism and pelvic pain here with c/o worsening pelvic pain L > R with intermittent vaginal bleeding on OCPs started having more bleeding this week (4th week of her pills) and increasing pain not responding to motrin. She is not having more bleeding than usual, no urinary symptoms and no fevers. Is going to see OB 01/30 but needs US and is waiting to hear about her appointment complaint: pelvic pain Onset (ago): month(s) (several) Location: pelvis Radiation: back Severity: moderate Quality: dull and constant Pain Consistency: intermittent Relieving factors: none Exacerbating factors: none Associated symptoms: other (vaginal bleeding) Treatments prior to arrival: none Related Data Home Medications Medication Instructions Recorded Confirmed ascorbate calcium (vitamin C) 500 500 mg PO DAILY 07/05/20 01/08/21 mg tablet omega-3 fatty acids 1,000 mg 1,000 mg PO DAILY 07/05/20 01/08/21 capsule (Fish Oil Concentrate) vitamin E 200 unit capsule 400 unit PO DAILY 07/05/20 01/08/21 folic acid 1 mg tablet 1 mg PO DAILY 09/05/20 01/08/21 acetaminophen 650 mg 650 mg PO Q12H PRN 10/09/20 01/08/21 tablet,extended release (Tylenol 8 Hour) Previous Rx's Medication Instructions Recorded ibuprofen 600 mg tablet 600 mg PO Q8H PRN pain #20 tabs 08/31/20 levothyroxine 125 mcg capsule 125 mcg PO DAILY 30 days #30 caps 12/28/20 cholecalciferol (vitamin D3) 50 50 mcg PO DAILY 30 days #30 caps 01/08/21 mcg (2,000 unit) capsule medroxyprogesterone 10 mg tablet 10 mg PO DAILY PRN provera 10 days 09/26/21 (Provera) #10 tabs vitamin with calcium 1 tab PO DAILY #30 tabs 09/26/21 no.72-iron 27 mg-folic acid 1 mg tablet ( Vitamins Plus Low Iron) Allergies Allergy/AdvReac Type Severity Reaction Status Date / Time Penicillins [PENICILLINS] Allergy Unknown RASH Verified 09/26/21 14:49 tramadol [TRAMADOL] Allergy Unknown STOMACH Verified 09/26/21 14:49 UPSET Review of Systems Review of Systems: Constitutional : No Fever, No Chills ENT/Mouth : No sore throat, No Rhinorrhea Eyes: No Eye Pain, No Redness Cardiovascular : No Chest Pain, No SOB Respiratory : No Cough, No Sputum, No Wheezing Gastrointestinal : positive Nausea, No Vomiting, No Diarrhea, positive abdominal pain, Genitourinary : positive irregular bleeding, No Dysuria, No Urinary Frequency, positive pelvic pain Musculoskeletal : No Myalgias Skin : No rash Neuro : No Weakness, No Headache Psych : No Anxiety/Panic, No Depression Heme/Lymph: No bruising, No Lymphadenopathy Endocrine : No Polyuria, No Polydipsia All other systems reviewed and are negative [facility] Past Medical History Medical History Hypothyroidism Migraine with aura Obesity PCOS (polycystic ovarian syndrome) Uterine fibroid Vitamin D deficiency Surgical History Hx of dilation and curettage Hx of tooth extraction Family History Family History Mother Hypertension Depression Father No problems noted. Paternal Grandfather Diabetes Social History Social History Alcohol intake: never Patient Tobacco Use Status: Former Tobacco user Smoked in Last 30 Days: No Use of substances other than those prescribed or required for medical reasons: No Advance Directives: Yes Advance Directives Information Provided: Yes Advance Directives on File: No Physical Exam ED Vital Signs: Vital Signs - 24 hr 12/27/22 12:31 Temperature 98.0 F Pulse Rate 80 Respiratory Rate 16 Blood Pressure 127/76 Pulse Oximetry 99 Oxygen Delivery Method Room Air BMI result Body Mass Index 30.1 Appearance: Alert. Oriented X3. No acute distress. Eyes: Pupils equal, round and reactive to light. ENT: Pharynx normal. Neck: Normal inspection. Neck supple. CVS: Normal heart rate and rhythm. Pulses normal. Respiratory: No respiratory distress. Breath sounds normal. Abdomen: Soft and mild lower suprapubic pain but no rebound Skin: Skin warm and dry. Normal skin color. Normal skin turgor. Extremities: No lower extremity edema. No calf ttp Neuro: Oriented X 3. No motor deficit. No sensory deficit. Course Course Course Narrative: This is an RME: Additional HPI, ROS, PE not included below will be deferred to primary provider. This is a [id number], with a history of PCOS and hypothyroidism, presenting to the ER with a complaint of left lower abdominal pain x [address] Diamond. Pt was prescribed OCPs. Endorsing chills, diarrhea, nausea. No vomiting. VSS. Suprapubic tenderness on examination. Plan: Labs, UA. Medical Decision Making Medical Decision Making MDM Narrative: 42 yo female with PMH of PCOS, hypothyroidism and pelvic pain here with c/o worsening pain but no sig change in bleeding no VS instability. She has OB here for mostly US to evaluate ovaries given pain sent by her PCP. At this time labs, UA and test ordered along with US of pelvis to evaluate for ovary and worsening cysts vs torsion Differential Diagnosis Differential Diagnoses: The differential diagnosis associated with the presentation includes ovarian cyst, pelvic pain, UTI Admission/Observation Consideration of admission/observation: Escalation of care including admission/observation considered H/H stable, no sig findings on US with 1 month of pain stable for DC Lab Data [facility] Lab Attestation statement: I reviewed the patient's lab results. 12/27/22 12:54 12/27/22 12:54 Labs: Lab Results 12/27/22 12/27/22 12/27/22 Range/Units 12:54 12:54 12:54 WBC 9.1 (4.8-10.8) X10*3/uL RBC 4.32 (4.20-5.50) X10*6/uL Hgb 13.1 (12.0-16.0) g/dl Hct 38.9 (37.0-47.0) % MCV 90.0 (80.0-98.0) fL MCH 30.3 (27.0-33.0) pg MCHC 33.7 (31.0-35.0) g/dl RDW 12.2 (11.0-16.0) % Plt Count 297 (160-400) X10*3/uL MPV 11.7 (9.4-12.3) fL Immature Gran % (Auto) 0.3 (0.0-0.4) % Neut % (Auto) 70.0 (45-73) % Lymph % (Auto) 22.5 (20-40) % [place] % (Auto) 6.0 (2-11) % Eos % (Auto) 0.8 (0-4) % Baso % (Auto) 0.4 (0-2) % Lymph # (Auto) 2.1 (1.2-4.9) X10*3/uL [place] # (Auto) 0.6 (0.1-1.2) X10*3/uL Eos # (Auto) 0.1 (0.0-0.4) X10*3/uL Baso # (Auto) 0.0 (0.0-0.2) X10*3/uL Abs Immat Gran (auto) 0.03 (0.00-0.03) X10*3/uL Absolute Neuts (auto) 6.4 (2.0-8.3) x10*3/uL Absolute Nucleated RBC 0.000 (0.0-0.012) X10*3/uL Nucleated RBC % (auto) 0.0 (0.0-0.2) /100WBC Sodium 140 (135-145) mmol/L Potassium 3.8 (3.3-5.1) mmol/L Chloride 105 (96-108) mmol/L Carbon Dioxide 26 (22-29) mmol/L Anion Gap 13 (12-20) BUN 13 (9-16) mg/dL Creatinine 0.81 (0.5-1.4) mg/dL Estim Creat Clear Calc 95.7 Estimated GFR > 60 Random Glucose 105 (60-115) mg/dL Calcium 9.5 (8.4-10.2) mg/dL Total Bilirubin 1.1 H (0.0-1.0) mg/dL Direct Bilirubin 0.3 (0.0-0.5) mg/dL AST 16 (5-31) U/L ALT 12 (0-31) U/L Alkaline Phosphatase 59 (39-117) U/L Total Protein 7.4 (6.5-8.0) g/dL Albumin 4.3 (3.5-5.0) g/dL Lipase 14 (8-78) U/L Beta HCG, Quant < 2 mIU/mL Urine Color Yellow Urine Appearance Clear Urine pH 5.5 (5.0-9.0) Ur Specific [place] 1.015 (1.005-1.025) Urine Protein Negative (Neg-Trace) mg/dL Urine Glucose (UA) Negative (Negative) mg/dL Urine Ketones Negative (Negative) mg/dL Urine Blood Large (3+) H (Negative) Urine Nitrite Negative (Negative) Ur Leukocyte Esterase Negative (Negative) Urine RBC 0-2 (0-2) /HPF Urine WBC 0-5 (0-5) /HPF Ur Squamous Epith Cells 0-2 (0-2) /HPF Urine Bacteria None Seen (None Seen) Hyaline Casts 0-2 (0-2) /LPF Urine Test (NEGATIVE) 12/27/22 Range/Units 12:54 WBC (4.8-10.8) X10*3/uL RBC (4.20-5.50) X10*6/uL Hgb (12.0-16.0) g/dl Hct (37.0-47.0) % MCV (80.0-98.0) fL MCH (27.0-33.0) pg MCHC (31.0-35.0) g/dl RDW (11.0-16.0) % Plt Count (160-400) X10*3/uL MPV (9.4-12.3) fL Immature Gran % (Auto) (0.0-0.4) % Neut % (Auto) (45-73) % Lymph % (Auto) (20-40) % [place] % (Auto) (2-11) % Eos % (Auto) (0-4) % Baso % (Auto) (0-2) % Lymph # (Auto) (1.2-4.9) X10*3/uL [place] # (Auto) (0.1-1.2) X10*3/uL Eos # (Auto) (0.0-0.4) X10*3/uL Baso # (Auto) (0.0-0.2) X10*3/uL Abs Immat Gran (auto) (0.00-0.03) X10*3/uL Absolute Neuts (auto) (2.0-8.3) x10*3/uL Absolute Nucleated RBC (0.0-0.012) X10*3/uL Nucleated RBC % (auto) (0.0-0.2) /100WBC Sodium (135-145) mmol/L Potassium (3.3-5.1) mmol/L Chloride (96-108) mmol/L Carbon Dioxide (22-29) mmol/L Anion Gap (12-20) BUN (9-16) mg/dL Creatinine (0.5-1.4) mg/dL Estim Creat Clear Calc Estimated GFR Random Glucose (60-115) mg/dL Calcium (8.4-10.2) mg/dL Total Bilirubin (0.0-1.0) mg/dL Direct Bilirubin (0.0-0.5) mg/dL AST (5-31) U/L ALT (0-31) U/L Alkaline Phosphatase (39-117) U/L Total Protein (6.5-8.0) g/dL Albumin (3.5-5.0) g/dL Lipase (8-78) U/L Beta HCG, Quant mIU/mL Urine Color Urine Appearance Urine pH (5.0-9.0) Ur Specific [place] (1.005-1.025) Urine Protein (Neg-Trace) mg/dL Urine Glucose (UA) (Negative) mg/dL Urine Ketones (Negative) mg/dL Urine Blood (Negative) Urine Nitrite (Negative) Ur Leukocyte Esterase (Negative) Urine RBC (0-2) /HPF Urine WBC (0-5) /HPF Ur Squamous Epith Cells (0-2) /HPF Urine Bacteria (None Seen) Hyaline Casts (0-2) /LPF Urine Test NEGATIVE (NEGATIVE) Independent Interpretation I performed an independent interpretation of an: Ultrasound (fibroids) Radiology Impression Discussion of test interpretation with radiology: I have reviewed the radiologist's reading. External Record Review External record reviewed: Office record Prescription Management I considered prescription management with: Pain Medication patient declined will take OTC medications Discharge Plan Discharge Clinical Impression: Pelvic pain Fibroid uterus Qualifiers: Uterine leiomyoma location: unspecified location Qualified Code(s): D25.9 - Leiomyoma of uterus, unspecified Patient Disposition: Home, Self-Care Instructions: Pelvic Pain (ED) Additional Instructions: you can take tylenol and motrin for pain. tylenol is every 4 hours do not take more than 4,000mg in a day. you can take motrin every 6 horus. call your OB today to make appointment. return for worsening symptoms, fevers, or any other concerns. you are not anemic. Puedes steve Tylenol y Motrin para el dolor. Tylenol es cada 4 horas, no tome m?s de 4000 mg al d?a. Puedes steve motrin cada 6 horas. Llame a morales obstetra hoy para programar medardo jethro. Regrese si los s?ntomas empeoran, tiene fiebre o cualquier otra inquietud. No est?s an?rodrigo. Prescriptions: No Action levothyroxine 125 mcg capsule 125 mcg PO DAILY 30 Days Qty: 30 3RF ibuprofen 600 mg tablet 600 mg PO Q8H PRN (Reason: pain) Qty: 20 0RF vitamin E 200 unit capsule 400 unit PO DAILY ascorbate calcium (vitamin C) 500 mg tablet 500 mg PO DAILY omega-3 fatty acids [Fish Oil Concentrate] 1,000 mg capsule 1,000 mg PO DAILY acetaminophen [Tylenol 8 Hour] 650 mg tablet extended release 650 mg PO Q12H PRN folic acid 1 mg tablet 1 mg PO DAILY cholecalciferol (vitamin D3) 50 mcg (2,000 unit) capsule 50 mcg PO DAILY 30 Days Qty: 30 11RF Vitamin Plus Low Iron 27 mg iron- 1 mg tablet 1 tab PO DAILY Qty: 30 11RF medroxyprogesterone [Provera] 10 mg tablet 10 mg PO DAILY PRN (Reason: provera) 10 Days Qty: 10 3RF Rx Instructions: repeat dosing every three month if no spontaneous menses Print Language: Urdu
[2022-12-27 12:59] LABS: MANUAL DIFF FLAG NO
[2022-12-27 13:10] LABS: Basophils Percent Auto 0.4 % (0-2); Eosinophils Absolute Auto 0.1 X10*3/uL (0.0-0.4); Eosinophils Percent Auto 0.8 % (0-4); Hematocrit 38.9 % (37.0-47.0); Hemoglobin 13.1 g/dl (12.0-16.0); Imm Gran Abs Auto 0.03 X10*3/uL (0.00-0.03); Imm Gran Pct Auto 0.3 % (0.0-0.4); Lymphocytes Absolute Auto 2.1 X10*3/uL (1.2-4.9); Lymphocytes Percent Auto 22.5 % (20-40); Mean Corpuscular HGB Conc 33.7 g/dl (31.0-35.0); Mean Corpuscular Hemoglobin 30.3 pg (27.0-33.0); Mean Platelet Volume 11.7 fL (9.4-12.3); Monocytes Absolute Auto 0.6 X10*3/uL (0.1-1.2); Neutrophils Absolute Auto 6.4 x10*3/uL (2.0-8.3); Platelet Count 297 X10*3/uL (160-400); Red Blood Count 4.32 X10*6/uL (4.20-5.50); Red Cell Distribution Width 12.2 % (11.0-16.0); White Blood Count 9.1 X10*3/uL (4.8-10.8)
[2022-12-27 13:13] LABS: Appearance Urine Clear; Color Urine Yellow; Glucose Urine UA Negative (Negative); Leukocyte Esterase Urine Negative (Negative); Nitrite Urine Negative (Negative); PH 5.5 (5.0-9.0); Specific Gravity - Urine 1.015 (1.005-1.025); UMIC TRIGGER UACC YES; Urine Blood Large (3+) (Negative); Urine Ketones Negative (Negative); Urine Protein Negative (Neg-Trace)
[2022-12-27 13:15] LABS: UPreg QC Valid YES; Urine Pregnancy NEGATIVE (NEGATIVE)
--- NOTE | 2022-12-27 13:24 | PC.NURSE ---
Patient reports was started on control by PCP and completed the three week course on her first pack but is having 10/10 left sided abdominal pain and heavy bleeding x 2 days. Patient reports was started on control because of irregular periods. Reports diarrhea but denies nausea or vomiting. Has been unable to have an ultrasound done with pcp
[2022-12-27 13:39] LABS: Bacteria Urine None Seen (None Seen); Hyaline Casts Urine 0-2 /LPF (0-2); RBC Urine 0-2 /HPF (0-2); Squamous Epithelial Cell Urine 0-2 /HPF (0-2); WBC Urine 0-5 /HPF (0-5)
[2022-12-27 14:18] LABS: Alanine Aminotransferase 12 U/L (0-31); Albumin Level 4.3 g/dL (3.5-5.0); Alkaline Phosphatase 59 U/L (39-117); Anion Gap 13 (12-20); Aspartate Amino Transferase 16 U/L (5-31); Bilirubin Direct 0.3 mg/dL (0.0-0.5); Bilirubin Total 1.1 mg/dL (0.0-1.0); Blood Urea Nitrogen 13 mg/dL (9-16); Calcium 9.5 mg/dL (8.4-10.2); Carbon Dioxide 26 mmol/L (22-29); Chloride 105 mmol/L (96-108); Creatinine Clr Calc Pharmacy 95.7; Estimated Glomerular Filt Rate > 60; Glucose Random 105 mg/dL (60-115); HCG Quantitative < 2 mIU/mL; Lipase 14 U/L (8-78); Potassium 3.8 mmol/L (3.3-5.1); Sodium 140 mmol/L (135-145); Total Protein 7.4 g/dL (6.5-8.0)
[2022-12-27 15:28] VITALS: BP 111/76; PULSE 69; RESP 16; TEMP 36.8; O2SAT 97
--- NOTE | 2022-12-27 15:47 | PC.NURSE ---
Discharge plan reviewed with patient who verbalized understanding
== END 2022-12-27 15:48 | disposition home or self-care (01) ==
PROVIDERS: Physician Assistant Medical; Emergency Provider Emergency Medicine; PCP Family Medicine
DX: D25.9 Leiomyoma of uterus, unspecified (principal); R10.2 Pelvic and perineal pain; Z79.899 Other long term (current) drug therapy
CPT/HCPCS: 36415; 76830; 76856; 80048; 80076; 81001; 81003; 81025; 83690; 84702; 85025; 93975; 99284

== ENCOUNTER 2023-01-30 13:03 | Outpatient (REF) | payer MEDICAID, SELFPAY | END 2023-01-30 13:04 | disposition home or self-care (01) | LOC: HO.LNP 13:03 | PROVIDERS: Visit Provider Advanced Practice Midwife | DX: Z01.419 Encounter for gynecological examination (general) (routine) without abnormal findings (principal); N93.9 Abnormal uterine and vaginal bleeding, unspecified; D25.9 Leiomyoma of uterus, unspecified; Z20.2 Contact with and (suspected) exposure to infections with a predominantly sexual mode of transmission | CPT/HCPCS: 0353U; 81025; 87480; 87510; 87624; 87660; 88142; 99396 ==

== ENCOUNTER 2023-01-30 13:03 | Outpatient (AMB) | payer MEDICAID, SELFPAY ==
--- NOTE | 2023-01-30 13:38 | MHC.OFFVIS ---
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 Patient admits she tries to eat a healthy diet including Calcium and Vitamin D. She stays active with exercise. Currently sexually active. Reports noticing more prominent menses, heavier since October. Reports last menses was regular and less painful. Denies vaginal itching and irritation. STD screening offered; she accepts. Denies family hx of breast, colon and ovarian cancer. Last pap smear Last mammogram PFSH Medical History Abnormal uterine bleeding (AUB) Migraine with aura Uterine fibroid Obesity PCOS (polycystic ovarian syndrome) Vitamin D deficiency Hypothyroidism Surgical History Hx of tooth extraction Hx of dilation and curettage Family History Mother Hypertension Depression Father No problems noted. Paternal Grandfather Diabetes Social History Alcohol intake: never Patient Tobacco Use Status: Former Tobacco user Female Reproductive History Menstrual Age of Menarche: 11 Duration of menses: other (abnormal) Date of last menstrual period: 01/13/23 control method: pills Total pregnancies: 0 Date of last pap smear: 11/12/18 (negative) Physical Exam Vital Signs: Last Vital Signs BP 110/70 01/30/23 13:42 BMI result Body Mass Index 29.6 Const General: cooperative, healthy appearing, no acute distress, well developed and alert Orientation/consciousness: patient oriented x3 HEENT Head: Yes normal to inspection Eyes General: appearance normal, both eyes and all related structures Neck Neck: Yes normal visual inspection Thyroid: Thyroid normal Chest Chest palpation & inspection: normal inspection of the chest Breast/axilla inspection: normal inspection of the breasts (no puckering, dimpling, peau de orange, retraction, discharge, masses) Breast/axilla palpation: normal palpation of the breasts Resp Effort & Inspection: normal respiratory effort GI Inspection: Yes normal to inspection Palpation (GI): Soft to palpation (to palpation) Rectal Exam - Female: deferred General: Yes bladder normal to inspection External Female Exam: normal external appearance and normal appearance of the urethra Speculum Exam - Vagina: normal appearance of the vagina, normal palpation and normal vaginal discharge Speculum Exam - Cervix: normal appearance of the cervix and normal palpation Bimanual exam- vagina & uterus: normal palpation, normal palpation and enlarged (known fibroid) Bimanual Exam- Adnexa, other: normal adnexae and no masses Skin General skin exam: no rashes or lesions noted Neuro General: patient oriented x3 Cognition (Neuro): normal cognition Extrem General: Yes normal to inspection Psych Attitude: cooperative Thought process: Normal thought process present Results AMB Test Urine AMB Test Urine Negative Last Edit by RUBIO Burroughs on 01/30/23 14:25 Results Reviewed Results Reviewed: Laboratory Last Values Tst Clinic Negative 01/30/23 14:09 Laboratory Tests 12/03/22 12/27/22 09:07 12:54 Hgb 13.1 TSH 0.83 Assessment & Plan Assessment & Plan (1) Encounter for well woman exam: Code(s): Z01.419 - Encounter for gynecological examination (general) (routine) without abnormal findings Plan: Discussed: Current recommendations for pap smears per ASCCP guidelines. Breast awareness and periodic self breast exams. Maintaining a healthy lifestyle including a well balanced diet and routine exercise. All of her questions and concerns were addressed to the best of my ability. RTO in one year for AG. (2) Abnormal uterine bleeding (AUB): Code(s): N93.9 - Abnormal uterine and vaginal bleeding, unspecified Plan: Discussed work up including pelvic US, labs and EMB. The EMB purpose was explained to rule out atypia, hyperplasia and uterine cancer. Reviewed procedure and instructed to take ibuprofen with food 1 hour prior to procedure. Go to ER with any prolonged or heavy bleeding. All of her questions and concerns were addressed to the best of my ability and shared decision making: for EMBx. She is agreeable to plan of care. Return in 2 weeks for test results and EMBx. (3) Uterine fibroid: Code(s): D25.9 - Leiomyoma of uterus, unspecified Orders: Orders US pelvic and transvaginal Today D25.9 - Leiomyoma of uterus, unspecified, N93.9 - Abnormal uterine and vaginal bleeding, unspecified MM tomosynthesis screening BI Today Z12.31 - Encounter for screening mammogram for malignant neoplasm of breast CT NG by PCR Today N93.9 - Abnormal uterine and vaginal bleeding, unspecified Pap Smear Today N93.9 - Abnormal uterine and vaginal bleeding, unspecified Bacterial Vaginosis Panel Today N93.9 - Abnormal uterine and vaginal bleeding, unspecified AMB HCG Urine Test Today Z32.02 - Encounter for test, result negative Coding Level of Care Code Est Pt Prev Care 40-64y([id number]) Diagnoses Encounter for well woman exam Z01.419 Abnormal uterine bleeding (AUB) N93.9 Uterine fibroid D25.9
[2023-01-30 13:42] VITALS: BP 110/70; BMI 29.6
== END 2023-01-30 14:21 | disposition home or self-care (01) ==
PROVIDERS: Visit Provider Advanced Practice Midwife
DX: Z01.419 Encounter for gynecological examination (general) (routine) without abnormal findings (principal); N93.9 Abnormal uterine and vaginal bleeding, unspecified; D25.9 Leiomyoma of uterus, unspecified; Z32.02 Encounter for pregnancy test, result negative
CPT/HCPCS: 99396

== ENCOUNTER 2023-03-03 11:06 | Outpatient (REF) | payer MEDICAID, SELFPAY | END 2023-03-03 11:07 | disposition home or self-care (01) | LOC: HO.MAMMO 11:06 | PROVIDERS: PCP Family Medicine; Visit Provider Advanced Practice Midwife | DX: Z12.31 Encounter for screening mammogram for malignant neoplasm of breast (principal) | CPT/HCPCS: 77063; 77067 ==

== ENCOUNTER → 2023-03-03 11:30 | Outpatient (BNV) | payer MEDICAID, SELFPAY | PROVIDERS: PCP Family Medicine; Visit Provider Radiology Diagnostic Radiology | DX: Z12.31 Encounter for screening mammogram for malignant neoplasm of breast (principal) | CPT/HCPCS: 77063; 77067 ==

== ENCOUNTER 2023-03-17 12:58 | Outpatient (REF) | payer MEDICAID, SELFPAY ==
--- NOTE | ~2023-03-17 | US_ITS ---
EXAMINATION: US PELVIS CLINICAL INFORMATION: Leiomyoma of uterus. Last menstrual period 02/16/2023. COMPARISON: 12/27/2022. TECHNIQUE: Ultrasound of the pelvis is performed using both transabdominal and transvaginal transducers along with Doppler. Transvaginal imaging is performed due to inadequate visualization transabdominally. FINDINGS: The uterus is heterogeneous and measures 13.0 x 8.8 x 8.9 cm, volume 535 mL. 7.9 x 7.5 x 6.9 cm right uterine mass previously measured 5.8 x 4.5 x 5.7 cm. No significant free fluid. Right ovary measures 3.4 x 1.4 x 1.8 cm with volume 4.5 mL and is unremarkable. Left ovary measures 3.4 x 2.0 x 3.1 cm with volume 10.9 mL. Left ovarian 1.6 x 2.0 x 2.1 cm cyst. Endometrium is very difficult to visualize as a discrete entity. US/US pelvic and transvaginal IMPRESSION: A 7.9 cm uterine mass has increased in size since exam of 12/27/2022. Differential considerations include a dominant fibroid versus conglomerate fibroid. Endometrium is not well visualized and therefore an endometrial lesion should also be considered. Gynecologic consultation, MRI and possible biopsy recommended.
== END 2023-03-17 12:59 | disposition home or self-care (01) ==
LOC: HO.US 12:58
PROVIDERS: PCP Family Medicine; Visit Provider Advanced Practice Midwife
DX: D25.9 Leiomyoma of uterus, unspecified (principal); N93.9 Abnormal uterine and vaginal bleeding, unspecified
CPT/HCPCS: 76830; 76856

== ENCOUNTER 2023-04-01 15:01 | Outpatient (REF) | payer MEDICAID, SELFPAY | END 2023-04-01 15:02 | disposition home or self-care (01) | LOC: HO.LAB 15:01 | PROVIDERS: PCP Family Medicine; Visit Provider Advanced Practice Midwife | DX: N85.8 Other specified noninflammatory disorders of uterus (principal); N93.9 Abnormal uterine and vaginal bleeding, unspecified; Z32.02 Encounter for pregnancy test, result negative | CPT/HCPCS: 58100; 81025; 88305 ==

== ENCOUNTER 2023-04-01 15:01 | Outpatient (AMB) | payer MEDICAID, SELFPAY ==
[2023-04-01 15:06] VITALS: BP 112/74; BMI 29.6
--- NOTE | 2023-04-01 15:06 | A.OFFVIS_ITS ---
Intake Vital Signs 04/01/23 15:06 Height 5 ft 5 in Weight 178 lb BMI 29.6 BP 112/74 Intake Visit Reasons: US follow up/?EMB Large Animal Husbandry Technician Required: Yes Large Animal Husbandry Technician Language: Ict Security Specialist Name: Angela Information Interpreted: non-clinical & clinical Electricians Top Helper: Electricians Top Helper Present (Angela) Allergies Penicillins [PENICILLINS] Allergy (Unknown, Verified 04/01/23 15:08) RASH tramadol [TRAMADOL] Allergy (Unknown, Verified 04/01/23 15:08) STOMACH UPSET Is last menstrual period known: Yes Last menstrual period: 02/25/23 HPI HPI Comments History of Present Illness Details Patient is here today for an endometrial biopsy due to AUB, history of uterine mass. PFS Medical History Abnormal uterine bleeding (AUB) Migraine with aura Uterine fibroid Obesity PCOS (polycystic ovarian syndrome) Vitamin D deficiency Hypothyroidism Surgical History Hx of tooth extraction Hx of dilation and curettage Family History Mother Hypertension Depression Father No problems noted. Paternal Grandfather Diabetes Social History Alcohol intake: never Patient Tobacco Use Status: Former Tobacco user Female Reproductive History Menstrual Age of Menarche: 11 Date of last menstrual period: 02/25/23 Review of Systems Const All systems reviewed & are unremarkable except as noted in HPI and below Physical Exam Vital Signs: Last Vital Signs BP 112/74 04/01/23 15:06 BMI result Body Mass Index 29.6 Const General: cooperative, healthy appearing and no acute distress Orientation/consciousness: patient oriented x3 GI Inspection: Yes normal to inspection Palpation (GI): Soft to palpation and Other GI palpation findings present (Nontender) Rectal Exam - Female: visual inspection normal General: Yes bladder normal to palpation External Female Exam: normal appearance of the urethra Speculum Exam - Vagina: normal appearance of the vagina, normal palpation and normal vaginal discharge Speculum Exam - Cervix: normal appearance of the cervix and normal palpation Bimanual exam- vagina & uterus: normal bimanual exam, normal palpation, bladder normal to palpation, normal palpation, uterine shape normal, non-tender and enlarged Bimanual Exam- Adnexa, other: normal adnexae Neuro General: patient oriented x3 Office Procedures Endometrial Biopsy Details: The patient is here today for an endometrial biopsy for AUB to rule out any pathology including atypical, hyperplasia or cancer cells of the uterus. She was counseled regarding anticipatory guidance for the procedure including the risks for pain, infection, bleeding, perforation, potential injury to the tissues may include the cervix, uterus, tubes, bladder and bowels. These injuries may include further treatment and evaluation including surgery, blood transfusions, antibiotics, hospitalizations and anesthesia. Permanent injury and scarring can occur. She was consented for the procedure, and the consent forms were signed. She is agreeable to have the procedure today. All questions were answered. Endometrial Biopsy Procedure: The patient was placed in the dorsal lithotomy position and a sterile speculum inserted. Using aseptic technique for the procedure. The cervix was cleansed with Betadine x 3 swabs. A single toothed tenaculum was placed on the cervix for stabilization and the uterus was sounded to 13 cm with a 4mm pipelle for 3 passes. Minimal bleeding was observed. The tissue sample was placed in formalin in a patient labeled container by staff assisting and sent to the pathology department for processing and interpretation. The patient tolerate the procedure well and was in good condition when leaving the department. Endometrial Biopsy Post Procedure Care: Nothing in the vagina including: tampons, douching or intimacy until all the bleeding has subsided. There may be some post procedure bleeding for several days, this bleeding is usually light and may turn to a light brown or pink color. Mild cramps may occurs. Nothing in the vaginal including: tampons, douching, or intimacy until all the bleeding has subsided. You may take an over the counter mild analgesic such as Tylenol or Advil (if no allergies) per the manufactures recommendation on dosing, frequency, and follow the directions completely. Call the office if any: fever (over 100.4), flu like symptoms, abdominal pain (worse than cramping), foul smelling, infected appearing vaginal discharge, or heavy bleeding. You will be scheduled for a follow up visit for results, either in person or on the phone when the results are completed in a few weeks. If indicated: Use condoms to prevent and STI's, and only after the bleeding has stopped completely. [id number] Biopsy Results AMB Test Urine AMB Test Urine Negative Last Edit by RUBIO Zamudio on 04/01/23 15:19 Results Reviewed Results Reviewed: Laboratory Last Values Tst Clinic Negative 04/01/23 15:19 Assessment & Plan Assessment & Plan (1) Uterine mass: Code(s): N85.8 - Other specified noninflammatory disorders of uterus Plan: Reviewed ultrasound findings with patient and discussed uterine mass, AUB. Counseled regarding findings of: Uterine mass can be benign-fibroid, or premalignant or malignant tumors. Further monitoring and evaluation is recommended with MRI study. EMB today. Referral to general gynecology for MD care if indicated for possible surgical consult. All of her questions and concerns were addressed to the best of my ability and shared decision making. She is agreeable to the plan of care. Follow up in person for test results. (2) Abnormal uterine bleeding (AUB): Code(s): N93.9 - Abnormal uterine and vaginal bleeding, unspecified Plan: See procedure notes Orders: Orders MR pelvis wo/w con Today N85.8 - Other specified noninflammatory disorders of uterus Surgical Today N85.8 - Other specified noninflammatory disorders of uterus, N93.9 - Abnormal uterine and vaginal bleeding, unspecified AMB HCG Urine Test Today Z32.02 - Encounter for test, result negative Coding Level of Care Code Procedure Only Diagnoses Uterine mass N85.8 Abnormal uterine bleeding (AUB) N93.9 CPT Codes Endometrial Biopsy - CPT: 38931-Asnxpewtude Biopsy ([id number])
== END 2023-04-01 15:53 | disposition home or self-care (01) ==
PROVIDERS: PCP Family Medicine; Visit Provider Advanced Practice Midwife
DX: N93.9 Abnormal uterine and vaginal bleeding, unspecified (principal); N85.8 Other specified noninflammatory disorders of uterus; Z32.02 Encounter for pregnancy test, result negative
CPT/HCPCS: 58100

== ENCOUNTER 2023-04-08 15:14 | Outpatient (AMB) | payer MEDICAID, SELFPAY ==
[2023-04-08 15:22] VITALS: BP 122/86; BMI 29.3
--- NOTE | 2023-04-08 15:22 | MHC.OFFVIS ---
Intake Vital Signs 04/08/23 15:22 Height 5 ft 5 in Weight 176 lb 5.917 oz BMI 29.3 BP 122/86 Intake Visit Reasons: pre op International Representative Required: Yes International Representative Language: Ramp Attendant Name: Angela BERGERON Information Interpreted: non-clinical & clinical Merchandise Supervisor: Merchandise Supervisor Present Accompanied by: Spouse Allergies Penicillins [PENICILLINS] Allergy (Unknown, Verified 04/08/23 15:26) RASH tramadol [TRAMADOL] Allergy (Unknown, Verified 04/08/23 15:26) STOMACH UPSET Is last menstrual period known: Yes Last menstrual period: 02/24/20 Post menopausal: No Patient : No Do you need a note to return to daycare/school/sports/work: Yes (for surgery on friday) HPI HPI Comments History of Present Illness Details Presenting for follow-up endometrial biopsy that was done by Jennifer Diamond CNM regarding abnormal uterine bleeding. The pathology showed the following: Endometrium, biopsy: - Superficial fragments of inactive endometrium with focal squamous morule information. - Fragments of hyalinized tissue. - No malignancy identified. COMMENT: Squamous morular metaplasia carries a mildly increased risk of an endometrial cancer outcome (approximately 5%) and may resolve spontaneously. However, follow-up with a repeat endometrial sample in approximately 3-6 months is advised to exclude persistence, as clinically appropriate. The hyalinized tissue may be degenerative changes secondary to a leiomyomata or other reactive processes PFSH Medical History Abnormal uterine bleeding (AUB) Migraine with aura Uterine fibroid Obesity PCOS (polycystic ovarian syndrome) Vitamin D deficiency Hypothyroidism Surgical History Hx of tooth extraction Hx of dilation and curettage Family History Mother Hypertension Depression Father No problems noted. Paternal Grandfather Diabetes Social History Alcohol intake: never Patient Tobacco Use Status: Former Tobacco user Female Reproductive History Menstrual Age of Menarche: 11 Date of last menstrual period: 02/24/20 Total pregnancies: 2 Full term: 2 Review of Systems Card Reports as per HPI and Reports no additional complaints Resp Reports as per HPI and Reports no additional complaints GI Reports as per HPI and Reports no additional complaints Reports as per HPI Physical Exam Vital Signs: Last Vital Signs BP 122/86 04/08/23 15:22 BMI result Body Mass Index 29.3 Const General: cooperative, healthy appearing and comfortable Chest Chest palpation & inspection: normal inspection of the chest and normal palpation of entire chest wall Breast/axilla inspection: normal inspection of the breasts and normal inspection of the axillae Breast/axilla palpation: normal palpation of the breasts, normal palpation of the axillae and no axillary lymphadenopathy Resp Effort & Inspection: normal respiratory effort Auscultation: clear to auscultation bilaterally Percussion: percussion normal Cardio Palpation: normal PMI Rate: regular rate Rhythm: regular rhythm Heart sounds: no murmurs and no rubs Peripheral pulses: Peripheral pulses 2+ throughout GI Inspection: Yes normal to inspection Palpation (GI): Soft to palpation, nontender, no guarding, not rigid and No hepatosplenomegaly present Percussion: Yes normal to percussion Auscultation: normal bowel sounds Rectal Exam - Female: deferred Assessment & Plan Assessment & Plan (1) Abnormal uterine bleeding (AUB): Comment: Focal squamous morule on EMB pathology Code(s): N93.9 - Abnormal uterine and vaginal bleeding, unspecified Plan: Discussed with the patient the results the pathology showing inactive endometrium with focal squamous morules which could be associated will increase the risk of endometrial cancer, recommended hysteroscopy D&C possible polypectomy/myomectomy to rule out any associated on diagnosed endometrial cancer. Discussed with the patient the procedure , all benefits and risks including but not limited to inability to complete the procedure , bleeding, infection, possible need for blood transfusion with all its risk ( HIV,syphilis, Hepatitis, anaphylaxis shock, others..), injury to bladder, rectum, possible need for laparoscopy/laparotomy or hysterectomy. The patient verbalized understanding and signed the consent. Instructions given the patient to schedule a 2 week postoperative appointment (2) Uterine fibroid: Comment: Increased in size: 7.9 x 7.5 x 6.9 cm right uterine mass previously measured 5.8 x 4.5 x5.7 cm Code(s): D25.9 - Leiomyoma of uterus, unspecified Plan: Discussed the patient the size of myoma increase in size, will proceed with hysteroscopy D&C possible polypectomy myomectomy and discuss options of treatment postoperatively. All questions answered, the patient verbalized understand Coding Level of Care Code Est Pt Level 3 (38370) Diagnoses Abnormal uterine bleeding (AUB) N93.9 Uterine fibroid D25.9
== END 2023-04-08 16:08 | disposition home or self-care (01) ==
LOC: HO.HWS 15:14
PROVIDERS: PCP Family Medicine; Visit Provider Obstetrics & Gynecology
DX: N93.9 Abnormal uterine and vaginal bleeding, unspecified (principal); D25.9 Leiomyoma of uterus, unspecified
CPT/HCPCS: 99213

== ENCOUNTER → 2023-04-08 15:14 | Outpatient (BNVA) | payer MEDICAID, SELFPAY | PROVIDERS: PCP Family Medicine; Visit Provider Obstetrics & Gynecology | DX: Z01.818 Encounter for other preprocedural examination (principal); D25.9 Leiomyoma of uterus, unspecified; N93.9 Abnormal uterine and vaginal bleeding, unspecified | CPT/HCPCS: 99212 ==

== ENCOUNTER 2023-04-11 08:58 | Day surgery (SDC) | payer MEDICAID, SELFPAY ==
--- NOTE | 2023-04-10 09:17 | P.CONAN_ITS ---
Documented by User: Amarilys Shields NP 04/10/23 09:18 HPI - Anesthesia Eval Consult details Narrative: 42yo F for D&C Hysteroscopy,poss myomectomy,poss polypectomy, PMFSH Active Problems Active Problems: All Active Problems (Updated 04/08/23 @ 15:37 by Robert Dawn MD) Abnormal uterine bleeding (AUB) (Acute) Uterine fibroid (Acute) Encounter for IUD removal (Acute) Pelvic pain in female (Acute) Breakthrough bleeding associated with intrauterine device (IUD) (Acute) Obesity (Acute) PCOS (polycystic ovarian syndrome) (Acute) Vitamin D deficiency (Acute) Hypothyroidism (Acute) Past Medical History Medical History Abnormal uterine bleeding (AUB) Migraine with aura Uterine fibroid Obesity PCOS (polycystic ovarian syndrome) Vitamin D deficiency Hypothyroidism Family History Family History Mother Hypertension Depression Father No problems noted. Paternal Grandfather Diabetes Surgical History Surgical History Hx of tooth extraction Hx of dilation and curettage Social History Social History Alcohol intake: never Patient Tobacco Use Status: Former Tobacco user Are you DNR?: No Advance Directives: No Advance Directives Information Provided: Yes Nutrition Risks: No Nutritional Risk FDLMP: 03/12/23 Meds Allergies Allergy/AdvReac Type Severity Reaction Status Date / Time Penicillins [PENICILLINS] Allergy Unknown RASH Verified 04/08/23 15:26 tramadol [TRAMADOL] Allergy Unknown STOMACH Verified 04/08/23 15:26 UPSET Home Medications Medication Instructions Recorded Confirmed Last Taken Type ascorbate calcium (vitamin C) 500 500 mg PO DAILY 07/05/20 01/08/21 Unknown History mg tablet omega-3 fatty acids 1,000 mg 1,000 mg PO DAILY 07/05/20 01/08/21 Unknown History capsule (Fish Oil Concentrate) vitamin E 200 unit capsule 400 unit PO DAILY 07/05/20 01/08/21 Unknown History acetaminophen 650 mg 650 mg PO Q12H PRN 10/09/20 01/08/21 Unknown History tablet,extended release (Tylenol 8 Hour) ibuprofen 400 mg tablet 400 mg PO Q8H PRN fever 01/30/23 Unknown History Exam Pertinent Lab Results Pertinent Lab Results: Laboratory Tests 12/27/22 12:54 WBC 9.1 Hgb 13.1 Hct 38.9 Plt Count 297 Sodium 140 Potassium 3.8 Chloride 105 Carbon Dioxide 26 BUN 13 Creatinine 0.81 Assessment and Plan Assessment Anesthesia Assessment: Chart Reviewed Documented by User: Eliana Guzman MD 04/11/23 10:08 [facility] Past Medical History Medical History Abnormal uterine bleeding (AUB) Migraine with aura Uterine fibroid Obesity PCOS (polycystic ovarian syndrome) Vitamin D deficiency Hypothyroidism Family History Family History Mother Hypertension Depression Father No problems noted. Paternal Grandfather Diabetes Family history of problems with anesthesia: No Surgical History Surgical History Hx of tooth extraction Hx of dilation and curettage History of Problems with Anesthesia: No Social History Social History Alcohol intake: never Patient Tobacco Use Status: Former Tobacco user Are you DNR?: No Advance Directives: No Advance Directives Information Provided: Yes Nutrition Risks: No Nutritional Risk FDLMP: 03/12/23 Meds Allergies Allergy/AdvReac Type Severity Reaction Status Date / Time Penicillins [PENICILLINS] Allergy Unknown RASH Verified 04/08/23 15:26 tramadol [TRAMADOL] Allergy Unknown STOMACH Verified 04/08/23 15:26 UPSET Home Medications Medication Instructions Recorded Confirmed Last Taken Type ascorbate calcium (vitamin C) 500 500 mg PO DAILY 07/05/20 01/08/21 Unknown History mg tablet omega-3 fatty acids 1,000 mg 1,000 mg PO DAILY 07/05/20 01/08/21 Unknown History capsule (Fish Oil Concentrate) vitamin E 200 unit capsule 400 unit PO DAILY 07/05/20 01/08/21 Unknown History acetaminophen 650 mg 650 mg PO Q12H PRN 10/09/20 01/08/21 Unknown History tablet,extended release (Tylenol 8 Hour) ibuprofen 400 mg tablet 400 mg PO Q8H PRN fever 01/30/23 Unknown History Exam Airway Mallampati Class: II TM Dist: >3cm Neck ROM: Full Heart: rrr Lungs: cta Assessment and Plan Assessment Anesthesia Assessment: Anesthesia Plan Discussed Final Anesthetic Review Family History of Problems with Anesthesia: No History of Problems with Anesthesia: No NPO: Yes ASA Class: II Final Preanesthetic Review: No Changes in Pt Med Stat, Meds/Allgs Chart Reviewed, Consent Obtained/Reviewed and Anes Risks/Benef Reviewed Patient Risk: Low Procedure Risk: Low Anesthetic Plan Anesthetic Plan: GA Disposition: Standard PACU
[2023-04-11 09:29] VITALS: BMI 29.7
[2023-04-11 09:38] LABS: UPreg QC Valid YES; Urine Pregnancy NEGATIVE (NEGATIVE)
[2023-04-11 09:42] VITALS: BP 118/70; PULSE 87; RESP 18; TEMP 36.7; O2SAT 99
[2023-04-11] MEDS: Lactated Ringers 1,000 ML 100 ML IVCONT (09:50)
--- NOTE | 2023-04-11 10:29 | MHC.SHP ---
Pre-Procedural Eval Section A Date of Service: 04/11/23 The patient is an INPATIENT: No Changes since office visit: No Cold of Flu in the past 2 weeks, No New Medical Problems, No Changes in Medication and No Patient answered all questions The History & Physical has been completed within 30 days and I have reviewed it.: Yes Section B Chief Complaint: Abnormal uterine and vaginal bleeding, unspecified Allergies: Allergies Allergy/AdvReac Type Severity Reaction Status Date / Time Penicillins [PENICILLINS] Allergy Unknown RASH Verified 04/11/23 10:11 tramadol [TRAMADOL] Allergy Unknown STOMACH Verified 04/11/23 10:11 UPSET Plan Diagnosis/Plan: Unchanged I have reviewed the history and physical and performed a pertinent physical examination on my patient. No changes have occurred unless specified. Time Spent With Patient Time: Total time managing care of this patient today ____ minutes.
--- NOTE | 2023-04-11 11:37 | P.BOP_ITS ---
Brief Operative Note Date of Service: 04/11/23 Pre-op diagnosis: Abnormal uterine bleeding, squamous morules on EMB pathology Post-op diagnosis: same (Submucosal myoma) Procedure: Hysteroscopy D&C, myomectomy Surgeon: Robert Dawn MD Anesthesia: GLMA Was an Computed Tomography Technician used for this Procedure?: No Estimated blood loss (mL): 0 Pathology: other (Endometrial Scrapping. Myoma) Condition: stable Disposition: PACU
--- NOTE | 2023-04-11 11:38 | P.OP_ITS ---
Operative Note Operative Note Date of Service: 04/11/23 Narrative: Preop Diagnosis: Abnormal uterine bleeding, squamous morules on EMB positive Operation: Diagnostic Hysteroscopy, Dilataion & Curettage and myomectomy Post Op Diagnosis: Submucosal myoma QBL: Minimal Anesthesia: GLMA Surgeon: Robert Dawn MD Mixer Operator Helper Hot Metal: None Complication: None Pathology: Endometrial Scrapings, submucosal myoma Procedure: The patient was put in the dorsal lithotomy position, scrubbed, and draped in the usual manner. A sterile speculum was inserted in the patient's vagina. The anterior lip of the cervix was grasped with a single tooth tenaculum. The cervix was dilated up to 5 mm, then the scope was inserted in the patient's uterus. Inspection revealed large submucosal myoma. The Myosure Reach device was used; it was introduced through the operative channel and partial myomectomy was done with no complications. The scope was then taken out from the uterine cavity, sharp curettings was carried on with minimal to moderate amount of tissues retrieved. At the end of the procedure, all instruments were taken out of the patient uterine and vaginal cavity. The single tooth tenaculum was removed and homeostasis was assured using pressure,. The patient tolerated the procedure well and was transferred to the PACU in a stable condition.
[2023-04-11 11:45] VITALS: BP 115/79; PULSE 73; RESP 16; TEMP 36.6; O2SAT 98
[2023-04-11 11:50] VITALS: BP 124/82; PULSE 67; RESP 16; O2SAT 99
[2023-04-11 11:55] VITALS: BP 121/83; PULSE 69; RESP 16; O2SAT 98
[2023-04-11 11:59] VITALS: BP 124/88; PULSE 63; RESP 16; TEMP 36.4; O2SAT 99
[2023-04-11 12:15] VITALS: BP 116/66; PULSE 76; RESP 18; TEMP 36.2; O2SAT 99
== END 2023-04-11 12:40 | disposition home or self-care (01) ==
PROVIDERS: Nurse Practitioner; PCP Family Medicine; Visit Provider Obstetrics & Gynecology
PROC: 0UDB8ZZ Extraction of Endometrium, Via Natural or Artificial Opening Endoscopic (ICD-10-PCS; CPT 58558; principal; 2023-04-11 11:00)
DX: D25.0 Submucous leiomyoma of uterus (principal); N93.9 Abnormal uterine and vaginal bleeding, unspecified; G43.109 Migraine with aura, not intractable, without status migrainosus; E28.2 Polycystic ovarian syndrome; E55.9 Vitamin D deficiency, unspecified; E03.9 Hypothyroidism, unspecified; Z79.899 Other long term (current) drug therapy; Z88.0 Allergy status to penicillin; Z88.8 Allergy status to other drugs, medicaments and biological substances; Z87.891 Personal history of nicotine dependence
CPT/HCPCS: 58561; 81025; 88305; J1885; J2405; J2704; J3010

== ENCOUNTER → 2023-04-11 08:58 | Outpatient (BNV) | payer MEDICAID, SELFPAY | PROVIDERS: PCP Family Medicine; Visit Provider Obstetrics & Gynecology | DX: D25.0 Submucous leiomyoma of uterus (principal); N93.9 Abnormal uterine and vaginal bleeding, unspecified | CPT/HCPCS: 58561 ==

== ENCOUNTER 2023-05-19 13:20 | Outpatient (AMB) | payer MEDICAID, SELFPAY ==
--- NOTE | 2023-05-19 13:41 | A.OFFVIS_ITS ---
Intake Vital Signs 05/19/23 13:45 Height 5 ft 5 in Weight 176 lb BMI 29.3 BP 108/66 Intake Visit Reasons: post op Allergies Penicillins [PENICILLINS] Allergy (Unknown, Verified 04/11/23 10:11) RASH tramadol [TRAMADOL] Allergy (Unknown, Verified 04/11/23 10:11) STOMACH UPSET HPI HPI Comments History of Present Illness Details The patient is presenting post hysteroscopy D&C no complaints minimal vaginal bleeding no feverishness chills or abdominal pain. The pathology showed the following: A. Labeled submucosal myoma , curettage: Benign polypoid endometrial tissue with focal stromal breakdown, suggesting disordered proliferative endometrium (some fragments may be derived from benign polyp); no atypia or carcinoma. B. Endometrium, curettage: Benign proliferative endometrium with focal squamous morulae associated with breakdown, and benign endocervical glandular mucosa; no atypia or carcinoma PFSH Medical History Abnormal uterine bleeding (AUB) Migraine with aura Uterine fibroid Obesity PCOS (polycystic ovarian syndrome) Vitamin D deficiency Hypothyroidism Surgical History Hx of tooth extraction Hx of dilation and curettage Family History Mother Hypertension Depression Father No problems noted. Paternal Grandfather Diabetes Social History Alcohol intake: never Patient Tobacco Use Status: Former Tobacco user Female Reproductive History Menstrual Age of Menarche: 11 Review of Systems Const All systems reviewed & are unremarkable except as noted in HPI and below Reports as per HPI and Reports no additional complaints GI Reports no additional complaints Reports no additional complaints Physical Exam Vital Signs: Last Vital Signs BP 108/66 05/19/23 13:45 BMI result Body Mass Index 29.3 Assessment & Plan Assessment & Plan (1) Abnormal uterine bleeding (AUB): Comment: Focal squamous morule on EMB and D and C pathology Myoma Increased in size: 7.9 x 7.5 x 6.9 cm right uterine mass previously measured 5.8 x 4.5 x5.7 cm Code(s): N93.9 - Abnormal uterine and vaginal bleeding, unspecified Plan: Discussed with the patient the results of pathology showing squamous more use with associated risk of future endometrial carcinoma, in addition the increase in the size of the uterine myoma. Options of treatment were discussed with the patient including either surveillance with progesterone treatment and repeat EMB in 3 in 6 months versus hysterectomy. All pros and cons, risks benefits of each approach were discussed with the patient, the patient decided to proceed with hysterectomy. Discussed with the patient the different types of hysterectomy including, laparoscopic, robotic assisted. All pros, cons, risks benefits of laparocopic and robotic versus open approach is were discussed with the patient. Explained to the patient that the morbidity of minimally invasive approaches is less than other approaches, in addition explained that neither [facility], nor a minimally invasive Gynecology trained specialist, are available at [facility]; after our discussion, the patient decided to be referred for minimally invasive hysterectomies at a tertiary care center. Will refer to [facility] minimally invasive gynecology. All questions answered the patient verbalized understanding. Instructed the patient to call our office back in case a referral appointment is not scheduled, missed or canceled so that we will assist on rescheduling another appointment, the patient verbalized understanding agreed with the plan. Coding Level of Care Code Est Pt Level 3 (86805) Diagnoses Abnormal uterine bleeding (AUB) N93.9
[2023-05-19 13:45] VITALS: BP 108/66; BMI 29.3
== END 2023-05-19 14:16 | disposition home or self-care (01) ==
PROVIDERS: PCP Family Medicine; Visit Provider Obstetrics & Gynecology
DX: N93.9 Abnormal uterine and vaginal bleeding, unspecified (principal)
CPT/HCPCS: 99213

== ENCOUNTER → 2023-05-19 13:20 | Outpatient (BNVA) | payer MEDICAID, SELFPAY | PROVIDERS: PCP Family Medicine; Visit Provider Obstetrics & Gynecology | DX: N93.9 Abnormal uterine and vaginal bleeding, unspecified (principal) | CPT/HCPCS: 99212 ==

== ENCOUNTER 2023-08-24 07:14 | Emergency (ER) | payer OTHER, SELFPAY ==
[2023-08-24 07:16] VITALS: BP 126/68; PULSE 80; RESP 16; TEMP 36.3; O2SAT 98; BMI 29.2
--- NOTE | 2023-08-24 07:48 | ED.FEMALEGU ---
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 She otherwise denies any nausea, vomiting, fever, chills. Related Data Home Medications ?Medication ?Instructions ?Recorded ?Confirmed ascorbate calcium (vitamin C) 500 500 mg PO DAILY 07/05/20 04/11/23 mg tablet vitamin E 200 unit capsule 400 unit PO DAILY 07/05/20 04/11/23 acetaminophen 650 mg 650 mg PO Q12H PRN Pain (Scale 10/09/20 04/11/23 tablet,extended release (Tylenol 8 Score 1-3) Hour) ibuprofen 400 mg tablet 400 mg PO Q8H PRN fever 01/30/23 04/11/23 Previous Rx's ?Medication ?Instructions ?Recorded ibuprofen 600 mg tablet 600 mg PO Q8H PRN pain #20 tabs 08/31/20 levothyroxine 125 mcg capsule 125 mcg PO DAILY 30 days #30 caps 12/28/20 cholecalciferol (vitamin D3) 50 50 mcg PO DAILY 30 days #30 caps 01/08/21 mcg (2,000 unit) capsule Allergies Allergy/AdvReac Type Severity Reaction Status Date / Time Penicillins [PENICILLINS] Allergy Unknown RASH Verified 08/24/23 07:17 tramadol [TRAMADOL] Allergy Unknown STOMACH Verified 08/24/23 07:17 UPSET Review of Systems Review of Systems: Pertinent positives and negatives as stated in HPI [facility] Past Medical History Source: nursing notes reviewed Medical History Abnormal uterine bleeding (AUB) Migraine with aura Uterine fibroid Obesity PCOS (polycystic ovarian syndrome) Vitamin D deficiency Hypothyroidism Surgical History Hx of tooth extraction Hx of dilation and curettage Family History Family History Mother Hypertension Depression Father No problems noted. Paternal Grandfather Diabetes Social History Social History Alcohol intake: never Patient Tobacco Use Status: Former Tobacco user Advance Directives: No Advance Directives Information Provided: Yes Do you have a plan to hurt others: No Plan Physical Exam Vital Signs: Vital Signs: Last Vital Signs Temp 98.0 F 08/24/23 09:09 Pulse 72 08/24/23 09:09 Resp 16 08/24/23 09:09 BP 95/69 08/24/23 09:09 Pulse Ox 99 08/24/23 09:09 O2 Del Method Room Air 08/24/23 09:09 BMI result Body Mass Index 29.2 VITAL SIGNS: Reviewed. GENERAL: Well developed, well nourished, in no acute distress. HEAD: Normocephalic/atraumatic EYES: PERRLA, EOMI, no pale conjunctivae EARS: Ext canals without abnormality NOSE: Nares patent bilateral OROPHARYNX: no oral lesions noted, posterior pharynx clear NECK: Supple, no adenopathy LUNGS: Normal breath sounds. No adventitious sounds or accessory muscle use. SpO2<98> CARDIOVASCULAR: Regular rate and rhythm without noted murmurs. ABDOMEN: Soft, lower abdominal/suprapubic discomfort on palpation without rebound, non-distended with bowel sounds. MUSCULOSKELETAL: No tenderness, deformities, or effusions noted on gross inspection. EXTREMITIES: No cyanosis, clubbing or edema. SKIN: Inspection of the skin reveals no rashes NEUROLOGIC: Alert and oriented x 4. Strength and sensation to light touch were grossly intact x 4. Medications Administered Discontinued Medications Generic Name Dose Route Start Last Admin Trade Name Freq PRN Reason Stop Dose Admin Acetaminophen 975 mg 08/24/23 07:48 08/24/23 09:09 Acetaminophen 325 Mg Tablet PO 08/24/23 07:49 975 mg ONCE ONE Administration Ibuprofen 800 mg 08/24/23 07:48 08/24/23 09:09 Ibuprofen 800 Mg Tablet PO 08/24/23 07:49 800 mg ONCE ONE Administration Medical Decision Making Medical Decision Making [facility] Narrative: 43-year-old female with history and clinical presentation, DDX: Dysmenorrhea associated with uterine fibroids, menorrhagia, will rule out UTI and . I reviewed all investigations and hematologic indices are negative for leukocytosis/left shift/anemia/thrombocytopenia. Chemistry indices negative for PARTH/electrolyte or liver enzyme derangements and beta hCG is undetectable. Urinalysis is consistent with hematuria secondary to menstruation and otherwise no evidence of infection. Patient received combination analgesics and on re-evaluation is feeling somewhat better and is otherwise discharged for recommended follow-up with her test department helper on Friday morning. Differential Diagnosis Differential Diagnoses: The differential diagnosis associated with the presentation includes Please see the discussion above Admission/Observation Consideration of admission/observation: Escalation of care including admission/observation considered Please see the discussion above Lab Data MDM Lab Attestation statement: I reviewed the patient's lab results. Please see the discussion above 08/24/23 08:32 08/24/23 08:31 Labs: Lab Results 08/24/23 08/24/23 08/24/23 Range/Units 08:31 08:32 09:12 WBC 5.8 (4.8-10.8) X10*3/uL RBC 4.39 (4.20-5.50) X10*6/uL Hgb 12.4 (12.0-16.0) g/dl Hct 37.0 (37.0-47.0) % MCV 84.3 (80.0-98.0) fL MCH 28.2 (27.0-33.0) pg MCHC 33.5 (31.0-35.0) g/dl RDW 15.5 (11.0-16.0) % Plt Count 282 (160-400) X10*3/uL MPV 11.9 (9.4-12.3) fL Immature Gran % (Auto) 0.3 (0.0-0.4) % Neut % (Auto) 57.6 (45-73) % Lymph % (Auto) 33.1 (20-40) % [place] % (Auto) 7.6 (2-11) % Eos % (Auto) 0.9 (0-4) % Baso % (Auto) 0.5 (0-2) % Lymph # (Auto) 1.9 (1.2-4.9) X10*3/uL [place] # (Auto) 0.4 (0.1-1.2) X10*3/uL Eos # (Auto) 0.1 (0.0-0.4) X10*3/uL Baso # (Auto) 0.0 (0.0-0.2) X10*3/uL Abs Immat Gran (auto) 0.02 (0.00-0.03) X10*3/uL Absolute Neuts (auto) 3.3 (2.0-8.3) x10*3/uL Absolute Nucleated RBC 0.000 (0.0-0.012) X10*3/uL Nucleated RBC % (auto) 0.0 (0.0-0.2) /100WBC Sodium 139 (135-145) mmol/L Potassium 4.1 (3.3-5.1) mmol/L Chloride 104 (96-108) mmol/L Carbon Dioxide 30 H (22-29) mmol/L Anion Gap 9 L (12-20) BUN 16 (9-16) mg/dL Creatinine 0.74 (0.5-1.4) mg/dL Estim Creat Clear Calc 102.1 Estimated GFR > 60 Random Glucose 110 (60-115) mg/dL Calcium 9.1 (8.4-10.2) mg/dL Total Bilirubin 0.7 (0.0-1.0) mg/dL AST 18 (5-31) U/L ALT 21 (0-31) U/L Alkaline Phosphatase 63 (39-117) U/L Total Protein 7.0 (6.5-8.0) g/dL Albumin 4.1 (3.5-5.0) g/dL Beta HCG, Quant < 2 mIU/mL Urine Color Yellow Urine Appearance Clear Urine pH 6.0 (5.0-9.0) Ur Specific Wheeler 1.015 (1.005-1.025) Urine Protein Negative (Neg-Trace) mg/dL Urine Glucose (UA) Negative (Negative) mg/dL Urine Ketones Negative (Negative) mg/dL Urine Blood Large (3+) H (Negative) Urine Nitrite Negative (Negative) Ur Leukocyte Esterase Negative (Negative) External Record Review External record reviewed: Outpatient record, Prior outpatient labs and Prior outpatient radiology Critical Care Time Critical Care Time Critical Care Time: Yes Total Critical Care Time: 30 Attestation: I personally attest to this time spent taking care of the patient. Discharge Plan Discharge Clinical Impression: Menorrhagia, Abnormal uterine bleeding, Uterine fibroid Patient Disposition: Home, Self-Care Instructions: Dysfunctional Uterine Bleeding (ED), Menorrhagia (ED) Additional Instructions: 1. Tylenol 1000 mg, orally, every 6 hours as needed for pain control. Do not exceed 4000 mg within 24 hours. 2. Ibuprofen 400 mg, orally with milk or food, every 6 hours as needed for pain control. I highly recommend that you take the Tylenol ibuprofen together. 3. Also recommend [id number] ThermaCare for additional menstrual symptom relief of pain. 4. Please follow-up with your test department helper tomorrow morning. Return to the ER for any acute worsening of your symptoms. Prescriptions: No Action levothyroxine 125 mcg capsule 125 mcg PO DAILY 30 Days Qty: 30 3RF ibuprofen 600 mg tablet 600 mg PO Q8H PRN (Reason: pain) Qty: 20 0RF vitamin E 200 unit capsule 400 unit PO DAILY ascorbate calcium (vitamin C) 500 mg tablet 500 mg PO DAILY acetaminophen [Tylenol 8 Hour] 650 mg tablet extended release 650 mg PO Q12H PRN (Reason: Pain (Scale Score 1-3)) cholecalciferol (vitamin D3) 50 mcg (2,000 unit) capsule 50 mcg PO DAILY 30 Days Qty: 30 11RF ibuprofen 400 mg tablet 400 mg PO Q8H PRN (Reason: fever) Referrals: Cynthia Gleason MD [Primary Care Provider] - Stand Alone Forms: Work/School Release Print Language: Frisian
[2023-08-24 08:45] LABS: MANUAL DIFF FLAG NO
[2023-08-24 08:56] LABS: Basophils Percent Auto 0.5 % (0-2); Eosinophils Absolute Auto 0.1 X10*3/uL (0.0-0.4); Eosinophils Percent Auto 0.9 % (0-4); Hemoglobin 12.4 g/dl (12.0-16.0); Imm Gran Abs Auto 0.02 X10*3/uL (0.00-0.03); Imm Gran Pct Auto 0.3 % (0.0-0.4); Lymphocytes Absolute Auto 1.9 X10*3/uL (1.2-4.9); Lymphocytes Percent Auto 33.1 % (20-40); Mean Corpuscular HGB Conc 33.5 g/dl (31.0-35.0); Mean Corpuscular Hemoglobin 28.2 pg (27.0-33.0); Mean Corpuscular Volume 84.3 fL (80.0-98.0); Mean Platelet Volume 11.9 fL (9.4-12.3); Monocytes Absolute Auto 0.4 X10*3/uL (0.1-1.2); Monocytes Percent Auto 7.6 % (2-11); Neutrophils Absolute Auto 3.3 x10*3/uL (2.0-8.3); Neutrophils Percent Auto 57.6 % (45-73); Platelet Count 282 X10*3/uL (160-400); Red Blood Count 4.39 X10*6/uL (4.20-5.50); Red Cell Distribution Width 15.5 % (11.0-16.0); White Blood Count 5.8 X10*3/uL (4.8-10.8)
[2023-08-24 09:04] LABS: Alanine Aminotransferase 21 U/L (0-31); Albumin Level 4.1 g/dL (3.5-5.0); Alkaline Phosphatase 63 U/L (39-117); Anion Gap 9 (12-20); Aspartate Amino Transferase 18 U/L (5-31); Bilirubin Total 0.7 mg/dL (0.0-1.0); Blood Urea Nitrogen 16 mg/dL (9-16); Calcium 9.1 mg/dL (8.4-10.2); Carbon Dioxide 30 mmol/L (22-29); Chloride 104 mmol/L (96-108); Creatinine Clr Calc Pharmacy 102.1; Estimated Glomerular Filt Rate > 60; Glucose Random 110 mg/dL (60-115); Potassium 4.1 mmol/L (3.3-5.1); Sodium 139 mmol/L (135-145)
[2023-08-24 09:07] LABS: HCG Quantitative < 2 mIU/mL
[2023-08-24 09:09] VITALS: BP 95/69; PULSE 72; RESP 16; TEMP 36.7; O2SAT 99
[2023-08-24] MEDS: Acetaminophen 325 MG TABLET 975 MG PO (09:09)
[2023-08-24] MEDS: Ibuprofen 800 MG TABLET PO (09:09)
[2023-08-24 09:21] LABS: Appearance Urine Clear; Color Urine Yellow; Glucose Urine UA Negative (Negative); Leukocyte Esterase Urine Negative (Negative); Nitrite Urine Negative (Negative); Specific Gravity - Urine 1.015 (1.005-1.025); UMIC TRIGGER UACC YES; Urine Blood Large (3+) (Negative); Urine Ketones Negative (Negative); Urine Protein Negative (Neg-Trace)
[2023-08-24 10:08] VITALS: BP 95/69; PULSE 72; RESP 16; TEMP 36.7; O2SAT 99
[2023-08-24 10:43] LABS: Bacteria Urine None Seen (None Seen); Hyaline Casts Urine 0-2 /LPF (0-2); RBC Urine >20 /HPF (0-2); Squamous Epithelial Cell Urine 0-2 /HPF (0-2); WBC Urine 0-5 /HPF (0-5)
== END 2023-08-24 10:09 | disposition home or self-care (01) ==
PROVIDERS: Emergency Provider Student in an Organized Health Care Education/Training Program; PCP Family Medicine
DX: N92.0 Excessive and frequent menstruation with regular cycle (principal); N93.9 Abnormal uterine and vaginal bleeding, unspecified; D25.9 Leiomyoma of uterus, unspecified
CPT/HCPCS: 36415; 80053; 81001; 84702; 85025; 99283

== ENCOUNTER 2024-10-08 11:34 | Outpatient (REF) | payer OTHER, SELFPAY ==
--- OUTSIDE RECORDS SUMMARY | 2024-10-08 12:31 | XMS_ITS | Encounter Summary ---
Author Organization [employer] Address [address] [facility] [address] [place] [address] Care Team Providers Care Microbiology Laboratory Manager Name Role Phone Cynthia Gleason MD Primary Care Provider [phone]- [phone] Trish Saldana OD Unavailable Robert Dawn MD Unavailable Encounter Details Date Type Department Care Team (Late Contact Info) Description 07/10/2023 Orders Only [facility] [address] [place] [address] Cynthia Gleason MD [address] [place] [address] Social History Tobacco Use Types Packs/Day Years Used Date Smoking Tobacco: Former Cigarettes Smokeless Tobacco: Never Alcohol Use Standard Drinks/Week Comments Not Currently 0 (1 standard drink = 0.6 oz pur e alcohol) Comments Unknown Sex and Gender Information Value Date Recorded Sex Assigned at Female 02/25/2022 10:18 AM EDT Legal Sex Female 10:18 AM EDT Gender Identity Female 02/25/2022 10:18 AM EDT Sexual Orientation Straight 02/25/2022 10 :18 AM EDT documented as of this encounter Plan of Treatment Upcoming Encounters Date Type Department Care Team (Late Contact Info) Description 10/18/2024 1:00 PM EDT Office Visit [facility] [address] [place] [address] Trish Saldana, OD [address] [place] [address] 01/07/2025 10:30 AM EDT Office Visit [facility] [address] [place] [address] Cynthia Gleason MD [address] [place] [address] documented as of this encounter Visit Diagnoses Not on filedocumented in this encounter Care Teams Microbiology Laboratory Manager Relationship Specialty Start Date End Date Cynthia Gleason MD [address] [place] [address] PCP - General Family Medicine 04/28/18 Trish Saldana OD [address] [place] [id number] Optometry 06/24/24 Robert Dawn MD [address] [place] [id number] Obstetrics and Gynecology 06/24/24 documented as of this encounter
== END 2024-10-08 11:35 | disposition home or self-care (01) ==
LOC: HO.MAMMO 11:34
PROVIDERS: Visit Provider Family Medicine
DX: Z12.31 Encounter for screening mammogram for malignant neoplasm of breast (principal)
CPT/HCPCS: 77063; 77067

== ENCOUNTER → 2024-10-08 12:15 | Outpatient (BNV) | payer OTHER, SELFPAY | PROVIDERS: Visit Provider Internal Medicine | DX: Z12.31 Encounter for screening mammogram for malignant neoplasm of breast (principal) | CPT/HCPCS: 77063; 77067 ==

== ENCOUNTER 2025-03-04 13:19 | Outpatient (AMB) | payer OTHER, SELFPAY ==
--- NOTE | 2025-03-04 14:00 | A.OFFVIS_ITS ---
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 Last seen with her PCP who prescribe wrist brace. Pain is mainly on her CMC joint, swells and limits her ROM when working with her hands. She also has numbness and tingling in bilateral hands mainly at night time. 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 Last seen with her PCP who prescribe wrist brace. Pain is mainly on her radial styloid, swells and limits her ROM when working with her hands. She also has numbness and tingling in bilateral hands mainly at night time. Patient states that this numbness and tingling is becoming more frequent as time goes on. [facility] Medical History Abnormal uterine bleeding (AUB) Migraine with aura Uterine fibroid Obesity PCOS (polycystic ovarian syndrome) Vitamin D deficiency Hypothyroidism Surgical History Hx of tooth extraction Hx of dilation and curettage Family History Mother Hypertension Depression Father No problems noted. 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 Neuro: Normal sensation of the tips of all digits of the right hand at this time Vascular: Cap refill brisk Pain: Tenderness to palpation of right radial styloid Positive Iveth on the right Minimal pain with CMC grind on the right No pain with varus and valgus testing of the MCP joint of right thumb ROM: Patient is able to flex and extend all digits of the right hand fully and without difficulty Skin: No lacerations or abrasions. General: No ecchymosis, erythema, or evidence of infection. Psych: Appears grossly normal Affect normal Attitude cooperative Assessment & Plan Assessment & Plan (1) Numbness and tingling of right hand: Code(s): R20.0 - Anesthesia of skin; R20.2 - Paresthesia of skin Category: Medical (2) De Quervain's tenosynovitis, right: Code(s): M65.4 - Radial styloid tenosynovitis [de Quervain] Category: Medical Plan 1. Numbness and tingling of right hand 2. Right de Quervain tenosynovitis Patient is educated about these conditions Patient is educated about the typical treatment and recovery course At this time, patient would like to proceed with right de Quervain injection, however I feel we should hold off until after we get an EMG and nerve conduction study on the right hand, because carpal tunnel may require surgical intervention and injections into the right wrist could delay our ability to do this Therefore, EMG is ordered today, and patient will follow-up after this EMG for results review and discussion of what treatment options might be indicated Patient understands this and is amenable to this plan Follow-up after EMG and nerve conduction study for results review and discussion of further treatment options, sooner with any acute concerns Orders: Orders NE nerve conduction velocity 03/04/25 R20.0 - Anesthesia of skin, R20.2 - Paresthesia of skin NE electromyogram (EMG) 03/04/25 R20.0 - Anesthesia of skin, R20.2 - Paresthesia of skin Coding Level of Care Code New Pt Level 3 (23837) Complex EM visit Add On G2211 Diagnoses Numbness and tingling of right hand R20.0; R20.2 De Quervain's tenosynovitis, right M65.4
--- OUTSIDE RECORDS SUMMARY | 2025-03-04 15:26 | XMS_ITS | Clinical Summary ---
Author Organization [employer] Address [address] [facility] [address] [place] [address] Care Team Providers Care Book Reviewer Name Role Phone Cynthia Gleason MD Primary Care Provider [phone] Trish Saldana OD Unavailable [phone] Robert Dawn MD Unavailable Allergies Active Allergy Reactions Criticality Noted Date Comments Latex Rash Low 01/28/2024 Penicillin G Unknown 02/02/2014 Tramadol Palpitations Low 08/15/2023 Medications levothyroxine (Synthroid, Levoxyl) 125 MCG tabletIndicatio ns:Hypothyroidi sm, acquired, autoimmune TAKE 1 TABLET BY MOUTH EVERY DAY 90 tablet 3 04/12/2024 Active FLUoxetine (PROzac) 10 MG capsuleIndicati ons:Recurrent major depressive episodes (CMS/HCC) Take 1 capsule (10 mg) by mouth Once per day. 90 capsule 3 09/29/2024 Active cholecalciferol (Vitamin D-3) 50 MCG (1999 UT) capsuleIndicati ons:Vitamin D deficiency Take 1 capsule (50 mcg) by mouth Once per day. 90 capsule 3 09/29/2024 Active acetaminophen (Tylenol 8 Hour) 650 MG ER tablet Take 1 tablet (650 mg) by mouth every 8 (eight) hours if needed for mild pain. Do not crush, chew, or split. 15 tablet 1 01/03/2025 Active Active Problems Problem Noted Date Diagnosed Date Secondary dental caries 01/03/2025 Migraine without status migrainosus, not intract able 09/29/2024 Overview (09/29/2024): -trail of ibuprofen with Zofran prn -discussed triggers and reviewing foods that can trigger migraines in some people -let me know if symptoms do not improve. Assessment & Plan (09/29/2024 4:10 PM EDT): -trail of ibuprofen with Zofran prn -discussed triggers and reviewing foods that can trigger migraines in some people -let me know if symptoms do not improve. Overweight 06/03/2024 Overview (06/03/2024): Discussed weight, diet, exercise with patient in relation to health conditions. Used motivational interviewing to illicit change talk and established initial goals with patient. Assessment & Plan (06/03/2024 10:14 AM EST): Discussed weight, diet, exercise with patient in relation to health conditions. Used motivational interviewing to illicit change talk and established initial goals with patient. Polydipsia 06/03/2024 Overview (07/28/2024): Reported polydipsia, no personal hx of diabetes and no Fhx. Other risk factors include weight and hx of elevated cholesterol. Lab Results Component Value Date HGBA1C 5.3 06/07/2024 HGBA1C 5.4 05/24/2024 HGBA1C 5.1 12/03/2022 HGBA1C 5.1 12/21/2021 HGBA1C 5.1 12/21/2021 GLUCOSE 110 08/24/2023 -ordered HGB A1C 06/02/24 Assessment & Plan (06/03/2024 10:19 AM EST): Reported polydipsia, no personal hx of diabetes and no Fhx. Other risk factors include weight and hx of elevated cholesterol. -ordered HGB A1C 06/02/24 Cardiac risk counseling 02/03/2024 Overview (07/28/2024): Calculated 07/28/24 low risk The 10-year ASCVD risk score (Dano TAYLOR, et al., 2019) is: 0.6% Values used to calculate the score: Age: 44 years Sex: Female Is Non- : No Diabetic: No Tobacco smoker: No Systolic Blood Pressure: 123 mmHg Is BP treated: No HDL Cholesterol: 57 mg/dL Total Cholesterol: 194 mg/dL Lab Results Component Value Date LDLCHOL 146 (H) 12/21/2021 LDLCHOL 137 (H) 11/10/2020 -Tobacco cessation: not applicable -Statin therapy:N/A -Importance of moderate physical activity and nutrition interventions discussed. Hx of hysterectomy 01/28/2024 Overview (01/28/2024): -s/p removal Uterus, cervix, bilateral fallopian tubes, hysterectomy and bilateral salpingectomy at [facility] 10/31/23 Pathology: - Endometrium: Hyperplastic endometrial polyp with partial pseudodecidualized stromal change, and scattered squamous modular metaplasia. - Myometrium: Adenomyoma and adenomyosis with pseudodecidualized stromal change. - Cervix: Chronic cervicitis with papillary endocervicitis, and squamous metaplasia Past medical history: patient had a D&C in April 2023 read as benign endometrial polyp and proliferative endometrium with focal morula (at [facility], not reviewed at [facility] pathology). The uterus demonstrates endometrium with pseudo-decidualized stromal changes of progestin effect within the hyperplastic polyp, in background endometrium and in adenomyotic foci. Presence of squamous morular metaplasia may suggest pre-treatment glandular hyperplastic changes. Other hemorrhoids 08/15/2023 Assessment & Plan (08/15/2023 1:26 PM EDT): Hydrocortisone cream and follow instructions for constipation Other specified health status 02/12/2023 Overview (01/07/2025): -next comprehensive annual evaluation due after -eye care facilitated by -dental home is -tenisha care proxy Bilateral hand numbness 12/02/2022 Overview (12/02/2022): No improvement with conservative measures including exercises and hand splints. Will check nerve conduction study. Assessment & Plan (12/02/2022 11:28 AM EDT): No improvement with conservative measures including exercises and hand splints. Will check nerve conduction study. Vitamin D deficiency 06/28/2022 Overview (09/29/2024): Lab Results Component Value Date [id number] 30.7 12/03/2022 Assessment & Plan (09/29/2024 4:09 PM EDT): Lab Results Component Value Date [id number] 30.7 12/03/2022 Tremor 06/28/2022 Dyslipidemia 06/25/2022 Overview (01/07/2025): Lab Results Component Value Date CHOL 194 06/07/2024 CHOL 187 12/03/2022 CHOL 220 (A) 12/21/2021 TRIG 62 06/07/2024 TRIG 76 12/03/2022 TRIG 85 12/21/2021 HDL 57 06/07/2024 HDL 51 12/03/2022 HDL 55 12/21/2021 LDLCHOLCAL 125 (H) 06/07/2024 LDLCHOLCAL 121 12/03/2022 LDL 146 12/21/2021 -continue lifestyle modification Assessment & Plan (01/07/2025 12:15 PM EDT): Lab Results Component Value Date CHOL 194 06/07/2024 CHOL 187 12/03/2022 CHOL 220 (A) 12/21/2021 TRIG 62 06/07/2024 TRIG 76 12/03/2022 TRIG 85 12/21/2021 HDL 57 06/07/2024 HDL 51 12/03/2022 HDL 55 12/21/2021 LDLCHOLCAL 125 (H) 06/07/2024 LDLCHOLCAL 121 12/03/2022 LDL 146 12/21/2021 -continue lifestyle modification Assessment & Plan (09/29/2024 4:06 PM EDT): Lab Results Component Value Date CHOL 194 06/07/2024 CHOL 187 12/03/2022 CHOL 220 (A) 12/21/2021 TRIG 62 06/07/2024 TRIG 76 12/03/2022 TRIG 85 12/21/2021 HDL 57 06/07/2024 HDL 51 12/03/2022 HDL 55 12/21/2021 LDLCHOLCAL 125 (H) 06/07/2024 LDLCHOLCAL 121 12/03/2022 LDL 146 12/21/2021 -continue lifestyle modification Assessment & Plan (06/03/2024 10:15 AM EST): Lab Results Component Value Date CHOLESTEROL 220 (H) 12/21/2021 LDLCHOL 146 (H) 12/21/2021 LDLCHOL 137 (H) 11/10/2020 TRIG 76 12/03/2022 TRIG 85 12/21/2021 HDLCHOL 55 12/21/2021 CHOLHDLRAT 4.0 12/21/2021 -continue lifestyle modifications -ordered repeat lipid panel 06/02/24 Assessment & Plan (12/02/2022 11:23 AM EDT): Lab Results Component Value Date CHOLESTEROL 220 (H) 12/21/2021 LDLCHOL 146 (H) 12/21/2021 LDLCHOL 137 (H) 11/10/2020 TRIG 85 12/21/2021 HDLCHOL 55 12/21/2021 CHOLHDLRAT 4.0 12/21/2021 -continue lifestyle modifications Acquired hypothyroidism 10/09/2021 Overview (09/29/2024): - h/o Graves Disease and is s/p thyroid ablation with subsequent acquired hypothyroidism. - TSH was WNL at 1.39 on 11/10/2020. - TSH was WNL on 05/2019. - Currently on Levothyroxine 125 mcg daily. Lab Results Component Value Date TSH 0.50 06/07/2024 TSH 0.83 12/03/2022 TSH 0.79 (A) 12/21/2021 - reordered TSH 06/02/24 Assessment & Plan (06/03/2024 10:14 AM EST): - h/o Graves Disease and is s/p thyroid ablation with subsequent acquired hypothyroidism. - TSH was WNL at 1.39 on 11/10/2020. - TSH was WNL on 05/2019. - Currently on Levothyroxine 125 mcg daily. - reordered TSH 06/02/24 Assessment & Plan (06/28/2022 9:33 AM EST): - h/o Graves Disease and is s/p thyroid ablation with subsequent acquired hypothyroidism. - TSH was WNL at 1.39 on 11/10/2020. - TSH was WNL on 05/2019. - Currently on Levothyroxine 125 mcg daily. Polycystic ovary syndrome 10/09/2021 Overview (07/28/2024): No control. - Last seen by endo on 01/08/2021. - Pt self d/c Metformin due to GI upset. - Pt was not found to be anemic on labs from 09/02/2019. Symtpoms not controlled. -Trial of OCP 12/02/2022. Assessment & Plan (12/02/2022 11:27 AM EDT): No control. - Last seen by endo on 01/08/2021. - Pt self d/c Metformin due to GI upset. - Pt was not found to be anemic on labs from 09/02/2019. Symtpoms not controlled. -Trial of OCP 12/02/2022. Assessment & Plan (06/28/2022 9:33 AM EST): No control, on Provera. - Last seen by endo on 01/08/2021. - Pt self d/c Metformin due to GI upset. - Pt was not found to be anemic on labs from 09/02/2019. Recurrent major depressive episodes 10/09/2021 Overview (09/29/2024): -Will restart Fluoxetine 10 mg every day 09/29/24 -denies BONNIE -Discussed coping mechanisms with patient. Assessment & Plan (09/29/2024 4:08 PM EDT): -Will restart Fluoxetine 10 mg every day 09/29/24 -denies BONNIE -Discussed coping mechanisms with patient. Assessment & Plan (06/28/2022 9:33 AM EST): -Will restart Fluoxetine 10 mg qd. 12/20/21 -Discussed coping mechanisms with patient. Resolved Problems Problem Noted Date Diagnosed Date Resolved Date Dietary counseling 06/03/2024 Assessment & Plan (06/03/2024 10:15 AM EST): Dietary Recommendations: Fruits, vegetables, whole grains, protein foods, and fat-free or low-fat dairy products are healthy choices. Eat different types of protein foods in your diet. This can include seafood, lean meats, poultry, beans, peas, lentils, nuts, seeds, soy products, and eggs. Limit foods and beverages higher in added sugars, saturated fat, and sodium. Exercise counseling 06/03/2024 09/30/19 Assessment & Plan (06/03/2024 10:15 AM EST): Exercise Recommendations: At least 150 minutes of moderate-intensity physical activity per week, or an equivalent combination of moderate- and vigorous-intensity activity. Breakthrough bleeding associ ated with intrauterine device (IUD) 01/28/2024 06/24/2024 Other constipation 08/15/2023 Assessment & Plan (08/15/2023 1:25 PM EDT): I advise to increase fiber on diet (more freash fruit and vegetables), drink plenty of water and walks I will prescribed for her both miralaax and colace Return back if no improvement Abnormal uterine bleeding 03/24/2023 Overview (05/21/2023): US 03/17/2023 ordered by Jennifer Kim CNM reveals A 7.9 cm uterine mass has increased in size since exam of 12/27/2022. Differential considerations include a dominant fibroid versus conglomerate fibroid. Endometrium is not well visualized and therefore an endometrial lesion should also be considered. Gynecologicconsultation, MRI and possible biopsy recommended. Seen with Musical Instrument Maker Or Repairer Jennifer Diamond CNM 04/01/23: Reviewed ultrasound findings with patient and discussed uterine mass, AUB. Counseled regarding findings of: Uterine mass can be benign-fibroid, or premalignant or malignant tumors. Further monitoring and evaluation is recommended with MRI study. -EMB done No malignancy identified. -MRI ordered by data communications analyst 04/01/23, results pending -Musical Instrument Maker Or Repairer with 05/19/23: Discussed with the patient the results of pathology showing squamous more use with associated risk of future endometrial carcinoma, in addition the increase in the size of the uterine myoma. Options of treatment were discussed with the patient including either surveillance with progesterone treatment and repeat EMB in 3 in 6 months versus hysterectomy. She decided to proceed with hysterectomy. Patient decided to be [facility] and was referred to [facility] minimally invasive gynecology. Muscle spasm 11/15/2022 06/24/2024 Assessment & Plan (11/15/2022 5:39 PM EDT): Symptoms seems consistent with muscle spasm in back and w possible tendinitis in right forearm from brisk movement after pulling heavy object Pt w similar symptoms 3 mo ago -warm compresses -prescribed muscle relaxant for few days -prior bedtime-explained to avoid ETOH,and to not drive or use heavy machinery after taking medication -tylenol prn x mild pain and NSAIDS x mod pain -denies contraindications -lidoderm patch -alarm signs and symptoms -referred again to PT-referred before by PCP but never schedule apt Numbness 11/15/2022 06/24/2024 Assessment & Plan (11/15/2022 5:41 PM EDT): Reports chronic numbness in both hands Unchanged ,worse at night or early am Here phalen and tinnel test are + in right hand -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 -trial w wrist brace -gave today written pz x both hands -will f w PCP at next apt in 4 weeks Encounters Date Type Department Care Team Description 01/07/2025 10:30 AM EDT Telemedicine [facility] [address] [place] [address] Cynthia Gleason MD Right hand pain (Primary Dx); Dyslipidemia; Chronic pain of right thumb 01/07/2025 Telephone [facility] [address] [place] [address] Cynthia Gleason MD Durable Medical Equipment (DME: Thumb Spica Splint) 01/07/2025 Travel 01/03/2025 1:00 PM EDT Office Visit [facility] [address] [place] [address] David Downey DDS Secondary dental caries (Primary Dx) 12/31/2024 Patient Outreach [facility] [address] [place] [address] Cynthia Gleason MD Pre-visit Planning ([facility] screening was completed on 06/02/2024) 12/31/2024 Travel from Last 3 Months Immunizations Immunization Administration Dates Next Due Influenza injectable quadriv alent IIV4 with preservative 01/22/2018,06/06/2017,01/17/2016 Influenza injectable quadriv alent preservative free 02/18/2019,01/19/2015,03/09/2014 Pfizer Covid-19 Vaccine 12+ 11/28/2020, Pfizer Covid-19 Vaccine 12+ Bivalent 10/25/2021 Pfizer Covid-19 Vaccine 12+ madan-sucrose (Thomas Cap) 10/25/2021 TD (adult), 2 Lf tetanus tox oid, preservative free, adsorbed 08/28/2017 Tdap 01/19/2015 Family History Medical History Relation Name Comments Tremor Mother Tremor Sister Relation Name Status Comments Mother Sister Social History Tobacco Use Types Packs/Day Years Used Date Smoking Tobacco: Former Cigarettes Passive Smoke Exposure: Past Smokeless Tobacco: Never Tobacco Cessation:Counseling Given: Not Answered Alcohol Use Standard Drinks/Week Comments Not Currently 0 (1 standard drink = 0.6 oz pur e alcohol) Depression Answer Date Recorded Patient Health Questionnaire-9 Score 0 06/02/2024 Patient Health Questionnaire-9 Score 0 06/02/2024 Last PHQ-9: Questionnaire Data Not on file 0 06/02/2024 Housing Stability Answer Date Recorded What is your housing situation today? I have nuria burgess 06/02/[address] you li ve. Do you have problems with any of the following? None of the above 06/02/2024 Food Insecurity Answer Date Recorded Within the past 12 months, y ou worried that your food would run out before you got money to buy more: Never True 06/02/2024 Within the past 12 months,th e food you bought just didn't last and you didn't have enough money to get more: Never True 08/2024 Transportation Answer Date Recorded In the past 12 months, has l ack of transportation kept you from medical appts, meetings, work or from getting things needed for daily living? No 06/02/2024 Utilities Answer Date Recorded In the past 12 months, has t he electric, gas, oil or water company threatened to shut off services in your home? No 06/02/2024 Depression Answer Date Recorded Patient Health Questionnaire-2 Score 0 06/02/2024 Internet Access Answer Date Recorded Internet Access Q1 No 06/02/2024 Internet Access Q2 I do not want or need it 08/2024 Comments Unknown Intention Date Recorded No desire to become (finding) 0 09/29/2024 Sex and Gender Information Value Date Recorded Sex Assigned at Female 02/25/2022 10:18 AM EDT Legal Sex Female 10:18 AM EDT Gender Identity Female 02/25/2022 10:18 AM EDT Sexual Orientation Straight 02/25/2022 10 :18 AM EDT Last Filed Vital Signs Vital Sign Reading Time Taken Comments Blood Pressure 123/63 05/24/2024 2:39 PM EST Pulse 91 05/24/2024 2:39 PM EST Temperature 36.8 C (98.2 F) 05/24/2024 2:39 PM EST Respiratory Rate 16 05/24/2024 2:39 PM EST Oxygen Saturation 99% 05/24/2024 2:39 PM EST Inhaled Oxygen Concentration - - Weight 78 kg (172 lb) 05/24/2024 2:39 PM EST Height 165.1 cm (5' 5 ) 08/15/2023 12:54 PM EDT Body Mass Index 28.62 08/15/2023 12:54 PM EDT Plan of Treatment Upcoming Encounters Date Type Department Care Team (Late st Contact Info) Description 03/16/2025 10:30 AM EST Office Visit [facility] [address] [place], [place] [phone] Cynthia Gleason MD [address] [place] [address] 04/20/2025 3:00 PM EST Office Visit [facility] [address] [place] [address] Trish Saldana, OD [address] [place] [address] Health Maintenance Due Date Last Done Comments Dental Oral Exam 1980 Dental Prophylaxis 1980 Dental X-Ray: Bitewings 1980 Dental X-Ray: Full Mouth 1980 Disability Screening 1980 HPV Vaccines (1 - 3-dose series) 1995 Hepatitis B Vaccines (1 of 3 - 19+ 3-dose series) 1999 HPV/Cotest 11/13/2023 11/12/2018, 12/2017, 06/06/2017 Pap Smear 11/13/2023 06/06/2017 COVID-19 Vaccine ( season) 2024 10/25/2021, 10/25/2021, 11/28/2020, Additional history exists Influenza Vaccine (#1) 2024 9, 01/22/2018, 06/06/2017, Additional history exists Alcohol/Substance Use Screening 06/02/2025 06/02/2024 Depression Screening 06/02/2025 06/02/2024, 06/02/19 25 SDOH Screening 06/02/2025 06/02/2024 Family Planning (PISQ) 09/29/2025 09/29/2024 Tobacco Screening 01/07/2026 01/07/2025 Mammogram 10/08/2026 10/08/2024, 03/03/2023 DTaP/Tdap/Td Vaccines (3 - Td or Tdap) 08/29/2027 08/28/2017, 01/19/2015 Zoster Vaccines (1 of 2) 2030 RSV Patients and Patients Aged 60 years or older (1 - 1-dose 75+ series) 2055 Hepatitis C Screening Completed 12/21/2021, 022 HIV Screening Completed 12/03/2022, 11/27, 12/21/2021 Cervical Cancer Screening Discontinued HIB Vaccines Aged Out No longer eligi ble based on patient's age to complete this topic Hepatitis A Vaccines Aged Out No long er eligible based on patient's age to complete this topic IPV Vaccines Aged Out No longer eligi ble based on patient's age to complete this topic Meningococcal B Vaccine Aged Out No l onger eligible based on patient's age to complete this topic Meningococcal Vaccine Aged Out No artis mayelin eligible based on patient's age to complete this topic Pneumococcal Vaccine: Pediatrics (0 to 5 Years) and At-Risk Patients (6 to 49) Years Aged Out No longer eligible based on patient's age to complete this topic RSV under 20 months Aged Out No longe r eligible based on patient's age to complete this topic Rotavirus Vaccines Aged Out No longer eligible based on patient's age to complete this topic Procedures Procedure Name Priority Date/Time Associated Diagnosis Comments CASE PRESENTATION, DETAILED AND EXTENSIVE TREATMENT PLANNING Routine 01/03/2025 1:00 PM EDT INTRAORAL - PERIAPICAL FIRST RADIOGRAPHIC IMAGE Routine 01/03/2025 1:00 PM EDT LIMITED ORAL EVALUATION - PROBLEM FOCUSED Routine 01/03/2025 1:00 PM EDT 5 DO AMALGAM FILLING Routine 01/03/2025 12:00 AM EDT BI MAMMOGRAM SCREENING TOMOSYNTHESIS BILATERAL Routine 10/08/2024 11:40 AM EDT HIV ANTIBODY/ANTIGEN (VT DP) Routine 12/03/2022 9:07 AM EDT LEONARDO HISTORICAL HEPATITIS C AB W/REFL TO HCV RNA, QN, PCR Routine 12/21/2021 8:06 AM EDT ZBORA HISTORICAL HPV E6/E7 RFLX SANDRA 16 18/45 Routine 11/12/2018 9:54 AM EDT PAP SMEAR Routine 06/06/2017 12:00 AM EST from Last 3 Months or Most Recently Relevant to Health Maintenance Results * BI Mammogram Screening Tomosynthesis Bilateral (10/08/2024 11:40 AM EDT) Anatomical Region Laterality Modality Breast Bilateral Mammography 10/08/2024 11:4 0 AM EDT Narrative 10/16/2024 8:09 PM EDT [facility] [address] [place], [place] [address] Mammography Report Signed Patient: Adelina Moore MR#: [id number] : 1980 Acct:[id number] Age/Sex: 44 / F ADM Date: 10/08/24 Loc: HO.MAMMO Attending Dr: Cynthia Gleason MD Ordering Physician: Cynthia Gleason MD Results: 1N egative Date of Service: 10/08/24 Follow Up: 1 Year From Orig inal Mammogram Procedure(s): MM tomosynthesis screening BI Accession Number(s): [id number] cc: Cynthia Gleason MD EXAMINATION: MM SCREENING DIGITAL BREAST TOMOSYNTHESIS, BILATERAL CLINICAL INFORMATION: Screening. Asymptomatic. COMPARISON: Mammography: Comparison is made with available priors TECHNIQUE: Digital breast mammography with tomosynthesis is performed in both the craniocaudal and mediolateral oblique views along with computer-aided detection (CAD). FINDINGS: There are scattered areas of fibroglandular density (ACR BI-RADS breast composition Category b). There are no significant masses, abnormal calcifications, or other abnormalities. MM/MM tomosynthesis screening BI IMPRESSION: No mammographic evidence of malignancy. ASSESSMENT: BI-RADS BI-RADS 1 - Negative RECOMMENDATION: Routine annual mammography screening. 1 year F/U This examination should not preclude the clinical evaluation of a suspicious palpable abnormality. This patient's information was entered into a reminder system with a target due date for their next mammogram. Electronically signed by: Leila Cyr DO 10/16/2024 08:05 PM EDT Dictated By: Leila Cyr DO Signed By: <Electronically signed by Leila Cyr DO in OV> 10/16/242004 DD/ 1140 TD/TT: 10/08/24 1155 Program Host: Procedure Note Donotuseinterpreter, Image - [facility] [address] [place] [address] Mammography Report Signed Patient: Melissa MooreR#: [id number] : 1980Acct:[id number] Age/Sex: 44 / FADM Date: 10/08/24 Loc: HO.MAMMO Attending Dr: Cynthia Gleason MD Ordering Physician: Cynthia Gleason MDResults: 1N egative Date of Service: 10/08/24Follow Up: 1 Year From [facility] Mammogram Procedure(s): MM tomosynthesis screening BI Accession Number(s): [id number] cc: Cynthia Gleason MD EXAMINATION: MM SCREENING DIGITAL BREAST TOMOSYNTHESIS, BILATERAL CLINICAL INFORMATION: Screening. Asymptomatic. COMPARISON: Mammography: Comparison is made with available priors TECHNIQUE: Digital breast mammography with tomosynthesis is performed in both the craniocaudal and mediolateral oblique views along with computer-aided detection (CAD). FINDINGS: There are scattered areas of fibroglandular density (ACR BI-RADS breast composition Category b). There are no significant masses, abnormal calcifications, or other abnormalities. MM/MM tomosynthesis screening BI IMPRESSION: No mammographic evidence of malignancy. ASSESSMENT: BI-RADS BI-RADS 1 - Negative RECOMMENDATION: Routine annual mammography screening. 1 year F/U This examination should not preclude the clinical evaluation of a suspicious palpable abnormality. This patient's information was entered into a reminder system with a target due date for their next mammogram. Electronically signed by: Leila Cyr DO 10/16/2024 08:05 PM EDT Dictated By: Leila Cyr DO Signed By: <Electronically signed by Leila Cyr DO in OV> 10/16/242004 DD/ 1140 TD/TT: 10/08/24 1155 Program Host: us Cynthia Gleason MD IMG BI PROCEDURES Edited R esult - Final * HIV Ab/Ag ([place] [facility]) (12/03/2022 9:07 AM EDT) HIV AB/AG Nonreactive Nonreactive [facility] Comment:HIV-1 p24 Ag and/or HIV-1/HIV-2 Ab not detected.A test result that is nonreactive does not exclude thepossibility of exposure to or infection with HIV-1 and/orHIV-2. Nonreactive results in this assay for individualswith prior exposure to HIV-1 and/or HIV-2 may be due toantigen and antibody levels that are below the limit ofdetection of this assay.The [employer] Supervisor HIV Ag/Ab Combo assay result andsupplemental assay results should be interpreted inconjunction with the patient's clinical presentation,history and other laboratory results. If the results areinconsistent with clinical evidence, additional testing issuggested to confirm the result. 12/03/2022 9:07 AM EDT 12/03/2022 11:24 AM EDT Cynthia Gleason MD LAB BLOOD ORDERABLES Final Result Performing Organization Address [facility] Co de Phone Number [facility] [address] [place] [address] [phone] * HEPATITIS C AB W/REFL TO HCV RNA, QN, PCR (12/21/2021 8:06 AM EDT) HEPATITIS C ANTIBODY NON-REACT RAUDEL NON-REACT RAUDEL [facility] INDEX 0.22 <1.00 [facility] Comment: HCV antibody was non-reactive. There is no laboratory evidence of HCV infection. In most cases, no further action is required. However, if recent HCV exposure is suspected, a test for HCV RNA (test code 86636) is suggested. For additional information please refer to http://education.[facility].Booklr/faq/XNR82s7 (This link is being provided for informational/ educational purposes only.) 12/21/2021 8:06 AM EDT Cynthia Gleason MD HISTORICAL/NON ORDERABLE L ABS Final Result Performing Organization Address City/[facility] Co de Phone Number [facility] [address] [place] [address], * HPV E6/E7 RFLX SANDRA 16 18/45 (11/12/2018 9:54 AM EDT) ADDITIONAL TESTING Not indicated () [facility] Comment: Test Performed by [employer] [place], [employer] [facility], [address] [place], [place] José Miguel Lopez M.D., Ph.D., Director of Laboratories , [place] [id number] HPV 16 RNA Test not performed [facility] HPV 18/45 RNA Test not performed [facility] HPV mRNA E6/E7 Not Detected NOT DETECTED [facility] Comment: This test was performed using the APTIMA(R) HPV Assay ([employer] This assay detects E6/E7 viral messenger RNA (mRNA) from 14 high-risk HPV types (16,18,31,33,35,39,45,51, 52,56,58,59,66,68). For additional information please refer to: http://education.[employer]/faq/GNT473l8 (This link is being provided for informational/ educational purposes only.) The analytical performance characteristics of this assay have been determined by [employer] [place], [place]. The modifications have not been cleared or approved by the FDA. This assay has been validated pursuant to the CLIA regulations and is used for clinical purposes. Please note: Effective 01/08/2016, HPV testing will be performed using [employer]'s APTIMA test which targets mRNA. Detecting mRNA instead of DNA, as in older methods, offers significant improvements in specificity. 11/12/2018 9:54 AM EDT us Historical Provider HISTORICAL/NON ORDERABLE LABS Final Result Performing Organization Address [facility]/ZIP Co de Phone Number [facility] [address] * Pap Smear (06/06/2017 12:00 AM EST) Swab us Historical Provider LAB CYTOLOGY ORDERABLES F inal Result IMAGING from Last 3 Months or Most Recently Relevant to Health Maintenance Insurance [facility] PARTIAL (MEDICAID) Care Teams Book Reviewer Relationship Specialty Start Date End Date [place], [place] Cynthia [address] [place] [address] 74907 PCP - General Family Medicine 04/28/18 Trish Saldana OD [address] [place] [address] [phone] Optometry 06/24/24 Robert Dawn MD [address] [place] [address] [phone] Obstetrics and Gynecology 06/24/24
--- OUTSIDE RECORDS SUMMARY | 2025-03-04 15:26 | XMS_ITS | Encounter Summary ---
Author Organization [employer] Address [address] [facility] 7t [place] [address] Care Team Providers Care Inspector Health Care Facilities Name Role Phone Cynthia Gleason MD Primary Care Provider +1- [phone] Trish Saldana OD Unavailable Robert Dawn MD Unavailable Encounter Details Date Type Department Care Team (Late Contact Info) Description 01/28/2024 Orders Only [facility] [address] [place] [address] [phone] Cynthia Gleason MD [address] [place] [address] [phone] H/O: hysterectomy (Primary Dx); Hx of hysterectomy Social History Tobacco Use Types Packs/Day Years Used Date Smoking Tobacco: Former Cigarettes Passive Smoke Exposure: Past Smokeless Tobacco: Never Alcohol Use Standard Drinks/Week [...] Department Care Team (Late Contact Info) Description 03/16/2025 10:30 AM EST Office Visit [facility] [address] [place] [address] [phone] Cynthia Gleason MD [address] [place] [address] [phone] 04/20/2025 3:00 PM EST Office Visit [facility] [address] [place], [place] [phone] Trish Saldana, OD [address] [place] [address] documented as of this encounter Visit Diagnoses Diagnosis H/O: hysterectomy- Primary Acquired absence of both cervix and uterus Hx of hysterectomy documented in this encounter Care Teams Inspector Health Care Facilities Relationship Specialty Start Date End Date Cynthia Gleason MD [address] [place], [place] [phone] PCP - General Family Medicine 04/28/18 Trish Saldana, RINA [address] [place] [address] 16866 Optometry 06/24/24 Robert Dawn MD [address] [place] [address] [place] [phone] Obstetrics and Gynecology 06/24/24 documented as of this encounter
--- OUTSIDE RECORDS SUMMARY | 2025-03-04 15:26 | XMS_ITS | Encounter Summary ---
Author Organization [employer] Address 75 [facility] 7t [place] [address] Care Team Providers Care Para Machine Operator Name Role Phone Cynthia Gleason MD Primary Care Provider +1- [phone] Trish Saldana OD Unavailable [phone] Robert Dawn MD Unavailable Encounter Details Date Type Department Care Team (Late st Contact Info) Description 07/10/2023 Orders Only [facility] [address] [place] [address] [phone] Cynthia Gleason MD [address] [place] [address] [phone] Social History Tobacco Use Types Packs/Day Years [...] Description 03/16/2025 10:30 AM EST Office Visit [facility] [address] [place] [address] [phone] Cynthia Gleason MD [address] [place] [address] [phone] 04/20/2025 3:00 PM EST Office Visit [facility] [address] [place] [address] Trish Saldana, RINA [address] [place] [address] documented as of this encounter Visit Diagnoses Not on filedocumented in this encounter Care Teams Para Machine Operator Relationship Specialty Start Date End Date Cynthia Gleason MD [address] [place] [address] PCP - General Family Medicine 04/28/18 Trish Saldana OD [address] [place] [address] 86313 Optometry 06/24/24 Robert Dawn MD [address] [place] [address] [phone] Obstetrics and Gynecology 06/24/24 documented as of this encounter
--- OUTSIDE RECORDS SUMMARY | 2025-03-04 15:26 | XMS_ITS | Encounter Summary ---
Author Organization [employer] Address 75 [facility] 7t [place] [address] Care Team Providers Care Investment Advisor Name Role Phone Cynthia Gleason MD Primary Care Provider +1- [phone] Trish Saldana OD Unavailable [phone] Robert Dawn MD Unavailable Encounter Details Date Type Department Care Team (Late st Contact Info) Description 02/12/2023 Abstract [facility] [address] [place] [address] [phone] Cynthia Gleason MD [address] [place] [address] [phone] Preventative health care Social History Tobacco Use Types Packs/Day Years [...] Description 03/16/2025 10:30 AM EST Office Visit [facility] [address] [place] [address] [phone] Cynthia Gleason MD [address] [place] [address] [phone] 04/20/2025 3:00 PM EST Office Visit [facility] [address] [place] [address] Trish Saldana, OD [address] [place] [address] documented as of this encounter Visit Diagnoses Diagnosis Preventative health care Routine general medical examination at a health care facility documented in this encounter Care Teams Investment Advisor Relationship Specialty Start Date End Date Cynthia Gleason MD [address] [place] [address] PCP - General Family Medicine 04/28/18 Trish Saldana, RINA [address] [place] [address] 32465 Optometry 06/24/24 Robert Dawn MD [address] [place] [address] 32300 Obstetrics and Gynecology 06/24/24 documented as of this encounter
--- OUTSIDE RECORDS SUMMARY | 2025-03-04 15:26 | XMS_ITS | Encounter Summary ---
Author Organization [employer] Address 75 [facility] 7t [place] [address] Care Team Providers Care Service Loss Control Consultant Name Role Phone Cynthia Gleason MD Primary Care Provider +1- [phone] Trish Saldana OD Unavailable [phone] Robert Dawn MD Unavailable Encounter Details Date Type Department Care Team (Late Contact Info) Description 07/01/2022 Abstract [facility] [address] [place] [address] [phone] Cynthia Gleason MD [address] [place] [address] [phone] Social History Tobacco Use Types Packs/Day Years Used Date Smoking Tobacco: Never Assessed Comments Unknown Sex and Gender Information Value Date Recorded Sex Assigned at Female 02/25/2022 10:18 AM EDT Legal Sex Female 10:18 AM EDT Gender Identity Female 02/25/2022 10:18 AM EDT Sexual Orientation Straight 02/25/2022 10 :18 AM EDT COVID-19 Exposure Response Date Recorded In the last 10 days, have yo u been in contact with someone who was confirmed or suspected to have Coronavirus/COVID-19? No / Unsure 06/28/2022 9:09 AM EST documented as of this encounter Plan of Treatment Upcoming Encounters Date Type Department Care Team (Late Contact Info) Description 03/16/2025 10:30 AM EST Office Visit [facility] [address] [place] [address] [phone] Cynthia Gleason MD [address] [place] [address] [phone] 04/20/2025 3:00 PM EST Office Visit [facility] [address] [place] [address] Trish Saldana, OD [address] [place] [address] documented as of this encounter Procedures Procedure Name Priority Date/Time Associated Diagnosis Comments VITAMIN D,25-OH,TOTAL,IA Routine 12/21/2021 HEPATITIS C AB W/REFL TO HCV RNA, QN, PCR Routine 12/21/2021 CBC AND DIFFERENTIAL - WAM AND NON-WAM Routine 12/21/2021 HIV-1 ANTIBODY, EIA Routine 12/21/2021 TSH Routine 12/21/2021 HEMOGLOBIN A1C Routine 12/21/2021 HEPATIC FUNCTION PANEL Routine 12/21/2021 LIPID PANEL, STANDARD Routine 12/21/2021 BASIC METABOLIC PANEL Routine 12/21/2021 documented in this encounter Results * (ABNORMAL) Vitamin D, 25-Hydroxy, Total, Immunoassay (12/21/2021) 12/21/2021 Cynthia Kaur MD - 12/21/2021 8:53 AM EDT 19 ng/ml Cynthia Gleason MD LAB BLOOD ORDERABLES Final Result * Hepatitis C Antibody with Reflex to HCV, RNA, Quantitative, Real-Time PCR (12/21/2021) Blood Venous blood specimen / Unknown 12/21/2021 [facility] Provider LAB BLOOD ORDERABLES Anila l Result * HIV-1 antibody, EIA (12/21/2021) [facility] External HIV-1 Antibody Negative Blood Venous blood specimen / Unknown Result [facility] MD LAB BLOOD ORDERABLES Anila l Result * (ABNORMAL) TSH (12/21/2021) [facility] TSH 0.79(A) 4.00 - 5.40 mIU/L Blood Venous blood specimen / Unknown Result [facility] LAB BLOOD ORDERABLES Anila l Result * Hemoglobin A1c (12/21/2021) [facility] Hemoglobin A1C 5.1 4.0 - 6.0 % Blood Venous blood specimen / Unknown Result [facility] LAB BLOOD ORDERABLES Anila l Result * Hepatic Function Panel (12/21/2021) [facility] ALT (SGPT) 19 7 - 35 U/L AST 23 13 - 35 U/L Blood Venous blood specimen / Unknown Result [facility] LAB BLOOD ORDERABLES Anila l Result * (ABNORMAL) Lipid Panel, Standard (12/21/2021) [facility] Triglycerides 85 40 - 160 mg/dL Cholesterol 220(A) 0 - 200 mg/dL HDL Cholesterol 55 35 - 70 mg/dL LDL Cholesterol 146 mg/dL Blood Venous blood specimen / Unknown Result [facility] LAB BLOOD ORDERABLES Anila l Result * Basic Metabolic Panel (12/21/2021) [facility] Glucose 95 mg/dL BUN 19 4 - 21 mg/dL Creatinine 0.8 0.5 - 1.1 mg/dL Potassium 4.4 3.4 - 5.5 mmol/L Sodium 138 137 - 147 mmol/L Blood Venous blood specimen / Unknown Historical Provider LAB BLOOD ORDERABLES Anila l Result * CBC and differential (12/21/2021) Hemoglobin 13.8 12.0 - 16.0 g/dL Hematocrit 40 36 - 46 % Platelets 273 150 - 399 10*3/uL Auto WBC 6.1 3.3 - 10.0 10*3/uL Blood Venous blood specimen / Unknown [facility] Provider LAB BLOOD ORDERABLES Anila l Result documented in this encounter Visit Diagnoses Not on filedocumented in this encounter Care Teams Service Loss Control Consultant Relationship Specialty Start Date End Date Cynthia Gleason MD [address] [place] [address] 13495 PCP - General Family Medicine 04/28/18 Trish Saldana OD [address] [place] [address] 52257 Optometry 06/24/24 Robert Dawn MD [address] [place] [address] 56422 Obstetrics and Gynecology 06/24/24 documented as of this encounter
--- OUTSIDE RECORDS SUMMARY | 2025-03-04 15:26 | XMS_ITS | Encounter Summary ---
Author Organization [employer] Address 75 [facility] 7t [place] [address] Care Team Providers Care Guide Name Role Phone Cynthia Gleason MD Primary Care Provider +1- [phone] Trish Saldana OD Unavailable Robert Dawn MD Unavailable Encounter Details Date Type Department Care Team (Late st Contact Info) Description 05/14/2022 Abstract [facility] [address] [place] [address] Cynthia Gleason MD [address] [place] [address] Social History Tobacco Use Types Packs/Day Years [...] Description 03/16/2025 10:30 AM EST Office Visit [facility] [address] [place] [address] Cynthia Gleason MD [address] [place] [address] 04/20/2025 3:00 PM EST Office Visit [facility] [address] [place] [address] Trish Saldana, OD [address] [place] [address] documented as of this encounter Procedures Procedure Name Priority Date/Time Associated Diagnosis Comments HPV HIGH RISK PCR Routine 06/06/2017 12:00 AM EST PAP SMEAR Routine 06/06/2017 12:00 AM EST documented in this encounter Results * HPV High Risk PCR (06/06/2017 12:00 AM EST) Swab Cervical swab / Unknown Historical Provider LAB MICROBIOLOGY - GENERA L ORDERABLES Final Result IMAGING * Pap Smear (06/06/2017 12:00 AM EST) Swab Historical Provider LAB CYTOLOGY ORDERABLES F inal Result Performing Organization Address City/[facility]/ZIP Co de Phone Number IMAGING documented in this encounter Visit Diagnoses Not on filedocumented in this encounter Care Teams Guide Relationship Specialty Start Date End Date Cynthia Gleason MD [address] [place] [address] PCP - General Family Medicine 04/28/18 Alex Saldanan, OD [address] [place] [address] 25957 Optometry 06/24/24 Robert Dawn MD [address] [place] [address] 89001 Obstetrics and Gynecology 06/24/24 documented as of this encounter
--- OUTSIDE RECORDS SUMMARY | 2025-03-04 15:26 | XMS_ITS | Encounter Summary ---
Author Organization [employer] Address 75 [facility] 7t [place] [address] Care Team Providers Care Event Staff Name Role Phone Cynthia Gleason MD Primary Care Provider +1- [phone] Trish Saldana OD Unavailable [phone] Robert Dawn MD Unavailable Encounter Details Date Type Department Care Team (Late st Contact Info) Description 06/24/2024 Orders Only [facility] [address] [place], [place] [phone] Cynthia Gleason MD [address] [place], [place] [phone] Recurrent major depressive episodes (CMS/HCC) (Primary Dx) Social History Tobacco Use Types Packs/Day Years [...] is your housing situation today? I have nuriayfn burgess 06/02/[address] you [...] want or need it 08/2024 Comments Unknown Sex and Gender Information Value [...] Description 03/16/2025 10:30 AM EST Office Visit [facility] [address] [place] [address] Cynthia Gleason MD [address] [place] [address] 04/20/2025 3:00 PM EST Office Visit [facility] [address] [place] [address] Les, Trish, OD [address] [place] [address] documented as of this encounter Visit Diagnoses Diagnosis Recurrent major depressive episodes (CMS/HCC)- Primary Major depressive disorder, recurrent episode, unspecified documented in this encounter Additional Health Concerns Assessment Noted Time PHQ-9 Depression Total Score: 0 06/02/19 25 4:45 PM EST documented as of this encounter Care Teams Event Staff Relationship Specialty Start Date End Date Cynthia Gleason MD [address] [place] [address] 17480 PCP - General Family Medicine 04/28/18 Trish Saldana OD [address] [place] [address] 79099 Optometry 06/24/24 Robert Dawn MD [address] [place] [address]854 Obstetrics and Gynecology 06/24/24 documented as of this encounter
--- OUTSIDE RECORDS SUMMARY | 2025-03-04 15:26 | XMS_ITS | Clinical Summary ---
Author Organization [facility] Address [address] [place] [address] Care Team Providers Care Director Of Psychiatry Name Role Phone Unavailable Primary Care Provider Unavailabl e Social History Tobacco Use Types Packs/Day Years Used Date Smoking Tobacco: Never Assessed Comments Unknown Sex and Gender Information Value Date Recorded Sex Assigned at Not on file Legal Sex Female 8:23 PM EST Gender Identity Not on file Sexual Orientation Not on file Plan of Treatment Health Maintenance Due Date Last Done Comments Breast Cancer Screening 1980 DTaP,Tdap,and Td Vaccines (1 - Tdap) 1999 Hepatitis B Vaccines (1 of 3 - 19+ 3-dose series) 1999 Cervical Cancer Screening: P ap Smear 2001 HPV Vaccines (1 - 3-dose SCD M series) 2007 HIV Screening 05/23/2023 Hepatitis C Screening 05/23/2023 Social Influencers of Health Screening 05/23/2023 Depression Screening 04/28/2024 COVID-19 Vaccine ( - 2023-2 5 season) 2024 Influenza Vaccine (#1) 2024 RSV Immunization Adult Patie nts (1 - 1-dose 75+ series) 2055 HIB Vaccines Aged Out No longer eligi ble based on patient's age to complete this topic Hepatitis A Vaccines Aged Out No long er eligible based on patient's age to complete this topic IPV Vaccines Aged Out No longer eligi ble based on patient's age to complete this topic MMR Vaccines Aged Out No longer eligi ble based on patient's age to complete this topic Meningococcal ACWY Vaccine Aged Out N o longer eligible based on patient's age to complete this topic Meningococcal B Vaccine Aged Out No l onger eligible based on patient's age to complete this topic Pneumococcal Vaccine: Pediat rics (0 to 5 Years) and At-Risk Patients (6 to 49 Years) Aged Out No longer eligible b ased on patient's age to complete this topic RSV Immunization Patients Un debbie 20 months Aged Out No longer eligible b ased on patient's age to complete this topic Varicella Vaccines Aged Out No longer eligible based on patient's age to complete this topic
== END 2025-03-04 14:30 | disposition home or self-care (01) ==
LOC: HO.HOS 13:19
PROVIDERS: PCP Family Medicine
DX: R20.0 Anesthesia of skin (principal); R20.2 Paresthesia of skin; M65.4 Radial styloid tenosynovitis [de Quervain]
CPT/HCPCS: 99203

== ENCOUNTER → 2025-03-04 13:19 | Outpatient (BNVA) | payer OTHER, SELFPAY | PROVIDERS: PCP Family Medicine | DX: R20.0 Anesthesia of skin (principal); R20.2 Paresthesia of skin; M65.4 Radial styloid tenosynovitis [de Quervain] | CPT/HCPCS: 99202 ==